=== PATIENT | male | born 1980 | race Caucasian/White ===

== ENCOUNTER 2020-10-04 18:45 | Emergency (ER) | payer MEDICARE, MEDICAID, SELFPAY ==
[2020-10-04 18:49] VITALS: BP 136/98; BP 153/92; PULSE 122; PULSE 127; RESP 20; TEMP 36.6; O2SAT 94; O2SAT 95; BMI 33.0
--- NOTE | 2020-10-04 19:19 | MHC.RECOVSUP ---
? Reason for consult - Support o Current location: ED22H o Identified substance use concern: Alcohol ? Intervention o Community resources provided o Harm reduction discussion ? Plan: o Patient to follow up with [facility] after discharge ? Additional information: Patient had a relapse after 6 months in recovery.. Stating that both his Mother and his Father both have cancer.. Patient wanted recovery resources that was provided to him.. stating that he needs support..
[2020-10-04 19:48] VITALS: BP 153/92; PULSE 122; O2SAT 94
--- NOTE | 2020-10-04 19:48 | ED.ALCOHOL ---
HPI - Alcohol General Chief Complaint: ETOH/Substance Use Stated Complaint: ETOH Time Seen by Provider: 10/04/20 21:59 Source: patient Mode of arrival: ambulatory Limitations: no limitations History of Present Illness HPI narrative: Patient brought to the ED due to him drinking alcohol. Patient was found sitting behind a liquor store drinking alcohol. Patient states him and his girlfriend got into an argument and broke up so he drank 20 beers. Patient denies for the ground hitting head. Patient is not suicidal homicidal. Patient does not want detox. Related Data Allergies Allergy/AdvReac Type Severity Reaction Status Date / Time No Known Allergies Allergy Unverified 01/21/20 15:51 Review of Systems Review of Systems: Yes all other systems are reviewed and are negative Constitutional: Constitutional: Reports as per HPI and Reports no additional constitutional complaints Eyes: Eyes: Reports as per HPI and Reports no additional eye complaints ENT: Reports system reviewed and no additional complaints, except as documented and Reports as per HPI Cardiovascular: Cardiovascular: Reports as per HPI and Reports no additional cardiovascular complaints Respiratory: Respiratory: Reports as per HPI and Reports no additional respiratory complaints Gastrointestinal: Gastrointestinal: Reports as per HPI and Reports no additional gastrointestinal complaints Genitourinary: Genitourinary: Reports no additional male genitourinary complaints and Reports as per HPI Musculoskeletal: Musculoskeletal: Reports no additional musculoskeletal complaints and Reports as per HPI Neurologic: Reports system reviewed and no additional complaints, except as documented and Reports as per HPI Psychiatric: Psychiatric: Reports no additional psychiatric complaints and Reports as per HPI [facility] Social History Social History Alcohol intake: current Alcohol intake frequency: 3 or more drinks per day Alcohol type: beer Patient Tobacco Use Status: Current everyday Tobacco user Smoked in Last 30 Days: Yes Use of substances other than those prescribed or required for medical reasons: Yes Substance Use Type: Marijuana Last Used Substance: Days (ago) Advance Directives: No Advance Directives Information Provided: No Physical Exam Vital Signs: Vital Signs: Last Vital Signs Temp 98 F 10/04/20 18:49 Pulse 96 10/04/20 22:23 Resp 16 10/04/20 22:23 BP 145/74 H 10/04/20 22:23 Pulse Ox 98 10/04/20 22:23 Body Mass Index 33.0 Const: General: cooperative, healthy appearing, comfortable, no acute distress, well developed, alert, awake and Physically active Orientation/consciousness: patient oriented x3 HENMT: Head: Yes normal to inspection, Yes No palpable skull fracture present, Yes normocephalic, Yes atraumatic, No abrasion, No Acrocyanosis present, No Suero's sign, No contusion, No cranial bruits, No hematoma, No laceration, No occipital foramen tenderness, No palpable skull fracture, No raccoon eyes, No scalp lesion, No scalp tenderness, No Temporal artery tenderness present and No periorbital ecchymosis Eyes: General: appearance normal, both eyes and all related structures Neck: Neck: Yes normal visual inspection, Yes full ROM, Yes no lymphadenopathy, Yes no meningeal signs, Yes trachea midline, Yes supple and No tender Chest: Chest palpation & inspection: normal inspection of the chest and normal palpation of entire chest wall Resp: Effort & Inspection: normal respiratory effort and able to speak in complete sentences Auscultation: clear to auscultation bilaterally Cardio: Jugular venous distension: no JVD Heart sounds: S1 normal heart sound present and S2 normal heart sound present GI: Inspection: Yes normal to inspection and No abdominal wall ecchymosis Palpation (GI): Soft to palpation, not firm, nontender, no guarding and not rigid : General: No CVA tenderness and Yes no CVA tenderness Back/Spine/Pelvis: Back: no CVA tenderness, No CVA tenderness and No back tenderness Skin: General skin exam: no rashes or lesions noted and elasticity normal Neuro: General: patient oriented x3, gait normal, no meningeal signs and CN's II-XI intact bilaterally Cranial nerves: Yes CN's II-XII intact bilaterally Extrem: General: Yes normal to inspection and Yes full ROM Psych: Appearance: grossly normal, well kempt and not disheveled Course Course Course Narrative: No signs of trauma. No indication for imaging. Will let patient sober up and then discharge. Reevaluation(s) Reevaluation #1: Patient presently alert oriented x3 with normal gait. Patient ready and safe for discharge. Patient been in the ER for over 2 hours. MDM - Alcohol MDM Narrative Medical decision making narrative: Alcohol abuse Discharge Plan Discharge Clinical Impression: Alcohol abuse Patient Disposition: Home, Self-Care Instructions: Abuse of Alcohol (ED) Additional Instructions: Return to the ED immediately for any headache, dizziness, chest pain, shortness of breath,neck pain, abdominal pain, vomiting blood, rectal bleeding, or any other concerning symptoms. Please follow-up with the PCP Interventions: ED Discharge Assessment Last Done: 10/04/20 22:20 Discharge Date/Time: 10/04/20 22:29 Print Language: Senegalese
[2020-10-04 20:11] VITALS: BP 110/88; PULSE 100; RESP 18; O2SAT 96
--- NOTE | 2020-10-04 20:38 | PC.NURSE ---
Pt states he cannot find a sober ride, has not attempted to call for ride. Pt coming up to nurses station, continuously asking to leave and go to car. Pt easily redirected.
[2020-10-04 22:23] VITALS: BP 145/74; PULSE 96; RESP 16; O2SAT 98
--- NOTE | 2020-10-04 22:24 | PC.NURSE ---
Pt ambulating around ED w/ steady and cortez gait. Tolerting po well. Speaks in clear and full sentences.
== END 2020-10-04 22:29 | disposition home or self-care (01) ==
PROVIDERS: Emergency Provider Emergency Medicine Emergency Medical Services
DX: F10.129 Alcohol abuse with intoxication, unspecified (principal); F12.90 Cannabis use, unspecified, uncomplicated; F17.200 Nicotine dependence, unspecified, uncomplicated; Y90.9 Presence of alcohol in blood, level not specified; Z71.6 Tobacco abuse counseling
CPT/HCPCS: 99285

== ENCOUNTER 2021-03-10 14:42 | Emergency (ER) | payer MEDICARE, MEDICAID, SELFPAY ==
[2021-03-10 14:55] VITALS: BP 137/83; BP 146/100; PULSE 115; PULSE 117; RESP 18; TEMP 36.6; O2SAT 98; BMI 38.5
--- NOTE | 2021-03-10 16:31 | ED.ALCOHOL ---
HPI - Alcohol General Chief Complaint: ETOH/Substance Use Stated Complaint: etoh Time Seen by Provider: 03/10/21 16:24 Source: patient Mode of arrival: ambulatory Limitations: no limitations History of Present Illness HPI narrative: For 3-year-old male presents to ED for alcohol use. Patient was drinking and got into argument with his landlord who is also his roommate while drinking and the landlord called the ambulance. Patient is not suicidal or homicidal. Patient and EMS denies any recent head trauma. Related Data Allergies Allergy/AdvReac Type Severity Reaction Status Date / Time No Known Allergies Allergy Unverified 01/21/20 15:51 Review of Systems Review of Systems: Yes all other systems are reviewed and are negative Constitutional: Constitutional: Reports as per HPI and Reports no additional constitutional complaints Eyes: Eyes: Reports as per HPI and Reports no additional eye complaints ENT: Reports system reviewed and no additional complaints, except as documented and Reports as per HPI Cardiovascular: Cardiovascular: Reports as per HPI and Reports no additional cardiovascular complaints Respiratory: Respiratory: Reports as per HPI and Reports no additional respiratory complaints Gastrointestinal: Gastrointestinal: Reports as per HPI and Reports no additional gastrointestinal complaints Genitourinary: Genitourinary: Reports no additional male genitourinary complaints and Reports as per HPI Musculoskeletal: Musculoskeletal: Reports no additional musculoskeletal complaints and Reports as per HPI Neurologic: Reports system reviewed and no additional complaints, except as documented and Reports as per HPI Comments: Alcohol on breath PMFSH Social History Social History Alcohol intake: current Alcohol intake frequency: 3 or more drinks per day Alcohol type: beer Patient Tobacco Use Status: Current everyday Tobacco user Substance Use Type: Marijuana Advance Directives: No Advance Directives Information Provided: No Physical Exam Vital Signs: Vital Signs: Last Vital Signs Temp 98 F 03/10/21 14:55 Pulse 115 H 03/10/21 14:55 Resp 18 03/10/21 14:55 BP 137/83 03/10/21 14:55 Pulse Ox 98 03/10/21 14:55 Body Mass Index 38.5 Const: General: cooperative, healthy appearing, comfortable, no acute distress, well developed, alert and awake Orientation/consciousness: patient oriented x3 HENMT: Head: Yes normal to inspection, Yes No palpable skull fracture present, Yes normocephalic, Yes atraumatic, No abrasion, No Acrocyanosis present, No Suero's sign, No contusion, No cranial bruits, No hematoma, No laceration, No occipital foramen tenderness, No palpable skull fracture, No raccoon eyes, No scalp lesion, No scalp tenderness, No Temporal artery tenderness present and No periorbital ecchymosis Eyes: General: appearance normal, both eyes and all related structures Neck: Neck: Yes normal visual inspection, Yes full ROM, Yes no lymphadenopathy, Yes no meningeal signs, Yes trachea midline, Yes supple and No tender Chest: Chest palpation & inspection: normal inspection of the chest and normal palpation of entire chest wall Resp: Effort & Inspection: normal respiratory effort and able to speak in complete sentences Auscultation: clear to auscultation bilaterally Cardio: Jugular venous distension: no JVD Heart sounds: S1 normal heart sound present and S2 normal heart sound present GI: Inspection: Yes normal to inspection and No abdominal wall ecchymosis Palpation (GI): Soft to palpation, not firm, nontender, no guarding and not rigid : General: No CVA tenderness and Yes no CVA tenderness Back/Spine/Pelvis: Back: no CVA tenderness, No CVA tenderness and No back tenderness Skin: General skin exam: no rashes or lesions noted and elasticity normal Neuro: General: patient oriented x3, gait normal, no meningeal signs and CN's II-XI intact bilaterally Cranial nerves: Yes CN's II-XII intact bilaterally Extrem: General: Yes normal to inspection and Yes full ROM Psych: Appearance: grossly normal, well kempt and not disheveled Course Course Course Narrative: Patient alert oriented x3 with normal gait. Will watch for at least 2 hours in the ER. Reevaluation(s) Reevaluation #1: Patient discharged by Dr. Mayorga from the ER. Patient was alert oriented x3 with normal gait. Patient refused detox. Discharge Plan Discharge Clinical Impression: Alcoholic intoxication Qualifiers: Complication of substance-induced condition: uncomplicated Qualified Code(s): F10.920 - Alcohol use, unspecified with intoxication, uncomplicated Patient Disposition: Home, Self-Care Instructions: Alcohol Intoxication (ED) Additional Instructions: follow up with detox Discharge Date/Time: 03/10/21 16:52
== END 2021-03-10 16:52 | disposition home or self-care (01) ==
PROVIDERS: Emergency Provider Internal Medicine
DX: F10.920 Alcohol use, unspecified with intoxication, uncomplicated (principal); Y90.9 Presence of alcohol in blood, level not specified; F17.200 Nicotine dependence, unspecified, uncomplicated
CPT/HCPCS: 99281; 99282

== ENCOUNTER 2021-06-14 16:46 | Emergency (ER) | payer OTHER, MEDICAID, SELFPAY ==
--- NOTE | ~2021-06-14 | XR_ITS ---
EXAMINATION: XR RIBS, LEFT CLINICAL INFORMATION: Rib pain COMPARISON: None TECHNIQUE: Single view chest and 3 views of the left ribs were obtained. FINDINGS: Lungs are clear. No consolidation, pneumothorax, or pleural effusion. The cardiomediastinal silhouette and pulmonary vasculature are normal. Osseous structures are unremarkable. Ribs are intact. No fractures are identified. XR/XR ribs LT min 3V w CXR1V IMPRESSION: Unremarkable examination.
--- NOTE | 2021-06-14 16:51 | ED_ITS ---
HPI - Alcohol General Chief Complaint: ETOH/Substance Use Stated Complaint: ETOH Time Seen by Provider: 06/14/21 16:51 Source: patient and EMS Mode of arrival: ambulatory Limitations: no limitations History of Present Illness HPI narrative: 40-year-old male with alcohol use disorder presenting via ambulance with acute alcohol intoxication, was found at a local package store. Patient tells me hes here because he is stressed, and going though a lot. He tells me he is depressed because his step dad is dying. Unable to quantify how much he drank alot . Denies hisotry of alcohol withdraw. Denies SI and HI. Denies visual, tactile and auditory hallucinations. Denies chest pain, shortness of breath, fevers, chills, nausea, vomiting, abdominal pain. Patient evidently intoxicated, however, answering questions appropriately. MD complaint: alcohol intoxication Last drink: Just prior to admission Amount of alcohol consumed: Unknown. Chronic alcohol use: Yes Previous visits for alcohol intoxication: Yes Recent trauma: No Associated symptoms: denies other symptoms Treatments prior to arrival: none Related Data Allergies Allergy/AdvReac Type Severity Reaction Status Date / Time No Known Allergies Allergy Unverified 01/21/20 15:51 Review of Systems Review of Systems: Constitutional : No Fever, No Chills ENT/Mouth : No sore throat, No Rhinorrhea Eyes: No Eye Pain, No Swelling, No Redness Cardiovascular : No Chest Pain, No SOB Respiratory : No Cough, No Sputum Gastrointestinal : No Nausea, No Vomiting, No Diarrhea, No abdominal Pain Genitourinary : No Dysuria, No Hematuria Musculoskeletal : No joint pain, No Myalgias, No Joint Swelling Skin : No Skin Lesions, No rash Neuro : No Weakness, No Numbness Psych : + Anxiety, + Depression, No SI/HI/AH/VH All other systems reviewed and are negative Yes all other systems are reviewed and are negative [facility] Past Medical History Attestation statement: The following information was validated with the patient. Source: old records reviewed and nursing notes reviewed Social History Social History Alcohol intake: current Alcohol intake frequency: 3 or more drinks per day Alcohol type: beer Patient Tobacco Use Status: Current everyday Tobacco user Substance Use Type: Marijuana Advance Directives: No Advance Directives Information Provided: No Physical Exam Vital Signs: Vital Signs: Last Vital Signs Temp 97.2 F 06/14/21 19:49 Pulse 103 H 06/14/21 19:49 Resp 16 06/14/21 19:49 BP 130/90 H 06/14/21 19:49 Pulse Ox 99 06/14/21 19:49 BMI result Body Mass Index 28.7 VSS Appearance: Alert.? Oriented X3.? No acute distress.?Evidently intoxicated Head: Normocephalic, atraumatic, no step-offs or deformities Eyes: Pupils equal, round and reactive to light.? ENT: Pharynx normal.? Neck: Normal inspection.? Neck supple.? CVS: Normal heart rate and rhythm.? Pulses normal.? Respiratory: No respiratory distress.? Breath sounds normal.? Abdomen: Soft and nontender.? Skin: Skin warm and dry.? Normal skin color.? Normal skin turgor.? Extremities: No lower extremity edema.? No calf ttp. 5/5 strength to bilateral upper and lower extremities Back: No midline tenderness, no C-spine tenderness, full range of motion, no CVA tenderness bilaterally Neuro: Oriented X 3.? No motor deficit.? No sensory deficit. CN 2-12 intact. U nsteady gait with ambulation Course Reevaluation(s) Reevaluation #1: Patient now reporting l. sided rib pain tells me he fell on ice a few days ago. Toradol will be given and a rib xray will be done. Time: 22:48 Reevaluation #2: CBC within normal limits. Chemistry within normal limits, slightly elevated AST. Urine clean. Patient's urine tox positive for cocaine, ethanol 346. At this time patient continues to say he is depressed and anxious, he will be evaluated by N. Patient ambulating with a steady gait. At this time patient will be placed in physician observation to allow more time for patient to be evaluated by the behavioral health team. At time evaluation was started patient's vital signs were stable, patient calm cooperative. Physical examination benign. Will continue to monitor. Time: 22:51 MDM - Alcohol MDM Narrative Medical decision making narrative: 1700 40 yo m pmhx alcohol abuse BIBA for acute alcohol intoxication. Found at a liquor store. Unknown how much he drank. Endorses anxiety and depression. No SI or HI. PE significant for intoxicated male, A&O X3, unsteady gait. RRR, lungs clear, abodmen soft nontender non distended. History and physical examination not consistent with acute alcohol withdrawal. No V/A/T hallucinations. No faciculations. Plan- labs, JAMES, ethanol, UA, fluids and ativan. No signs of trauma no need for imaging. Medical Records Attestation: I reviewed the patient's medical records. Lab Data Attestation: I reviewed the patient's lab results. Result diagrams: 06/14/21 18:48 06/14/21 18:48 Labs: Lab Results 06/14/21 06/14/21 06/14/21 Range/Units 18:36 18:48 18:48 WBC 10.2 (4.8-10.8) X10*3/uL RBC 5.17 (4.60-5.80) X10*6/uL Hgb 15.2 (14.0-18.0) g/dl Hct 43.9 (42.0-52.0) % MCV 84.9 (80.0-98.0) fL MCH 29.4 (27.0-33.0) pg MCHC 34.6 (31.0-36.0) g/dl RDW 13.1 (11.0-16.0) % Plt Count 295 (160-400) X10*3/uL MPV 9.9 (9.4-12.4) fL Immature Gran % (Auto) 0.3 (0.0-0.4) % Neut % (Auto) 65.5 (45-73) % Lymph % (Auto) 27.5 (20-40) % [place] % (Auto) 5.9 (2-11) % Eos % (Auto) 0.4 (0-4) % Baso % (Auto) 0.4 (0-2) % Lymph # (Auto) 2.8 (1.2-4.9) X10*3/uL [place] # (Auto) 0.6 (0.1-1.2) X10*3/uL Eos # (Auto) 0.0 (0.0-0.4) X10*3/uL Baso # (Auto) 0.0 (0.0-0.2) X10*3/uL Abs Immat Gran (auto) 0.03 (0.00-0.03) X10*3/uL Absolute Neuts (auto) 6.7 (2.0-8.3) x10*3/uL Absolute Nucleated RBC 0.000 (0.0-0.012) X10*3/uL Nucleated RBC % (auto) 0.0 (0.0-0.2) /100WBC Sodium 141 (135-145) mmol/L Potassium 3.9 (3.3-5.1) mmol/L Chloride 106 (96-108) mmol/L Carbon Dioxide 22 (22-29) mmol/L Anion Gap 17 (12-20) BUN 9 (9-16) mg/dL Creatinine 1.20 (0.5-1.4) mg/dL Estim Creat Clear Calc 91.7 Estimated GFR > 60 POC Glucose 134 H (60-115) mg/dL Random Glucose 120 H (60-115) mg/dL Calcium 9.2 (8.4-10.2) mg/dL Magnesium 2.3 (1.6-2.6) mg/dL Total Bilirubin 0.6 (0.0-1.0) mg/dL AST 47 H (5-37) U/L ALT 17 (0-40) U/L Alkaline Phosphatase 97 (39-117) U/L Total Protein 7.9 (6.5-8.0) g/dL Albumin 4.6 (3.5-5.0) g/dL Urine Color Urine Appearance Urine pH (5.0-8.0) Ur Specific [place] (1.005-1.025) Urine Protein (NEG-TRACE) MG/DL Urine Glucose (UA) (NEG) MG/DL Urine Ketones (NEG) MG/DL Urine Blood (NEG) Urine Nitrite (NEG) Ur Leukocyte Esterase (NEG) Urine RBC (0) /HPF Urine WBC (0-4) /HPF Ur Squamous Epith Cells /LPF Amorphous Sediment /LPF Urine Bacteria /LPF Urine Mucus /LPF Urine Opiates Screen (Not Detect) Urine Fentanyl Screen (Not Detect) Ur Barbiturates Screen (Not Detect) Ur Phencyclidine Scrn (Not Detect) Ur Amphetamines Screen (Not Detect) U Benzodiazepines Scrn (Not Detect) Urine Cocaine Screen (Not Detect) U Marijuana (THC) Screen (Not Detect) Ethyl Alcohol mg/dL COVID-19 (LATRICE) (Negative) COVID-19 Clin Com 06/14/21 06/14/21 06/14/21 Range/Units 18:48 18:48 18:49 WBC (4.8-10.8) X10*3/uL RBC (4.60-5.80) X10*6/uL Hgb (14.0-18.0) g/dl Hct (42.0-52.0) % MCV (80.0-98.0) fL MCH (27.0-33.0) pg MCHC (31.0-36.0) g/dl RDW (11.0-16.0) % Plt Count (160-400) X10*3/uL MPV (9.4-12.4) fL Immature Gran % (Auto) (0.0-0.4) % Neut % (Auto) (45-73) % Lymph % (Auto) (20-40) % [place] % (Auto) (2-11) % Eos % (Auto) (0-4) % Baso % (Auto) (0-2) % Lymph # (Auto) (1.2-4.9) X10*3/uL [place] # (Auto) (0.1-1.2) X10*3/uL Eos # (Auto) (0.0-0.4) X10*3/uL Baso # (Auto) (0.0-0.2) X10*3/uL Abs Immat Gran (auto) (0.00-0.03) X10*3/uL Absolute Neuts (auto) (2.0-8.3) x10*3/uL Absolute Nucleated RBC (0.0-0.012) X10*3/uL Nucleated RBC % (auto) (0.0-0.2) /100WBC Sodium (135-145) mmol/L Potassium (3.3-5.1) mmol/L Chloride (96-108) mmol/L Carbon Dioxide (22-29) mmol/L Anion Gap (12-20) BUN (9-16) mg/dL Creatinine (0.5-1.4) mg/dL Estim Creat Clear Calc Estimated GFR POC Glucose (60-115) mg/dL Random Glucose (60-115) mg/dL Calcium (8.4-10.2) mg/dL Magnesium (1.6-2.6) mg/dL Total Bilirubin (0.0-1.0) mg/dL AST (5-37) U/L ALT (0-40) U/L Alkaline Phosphatase (39-117) U/L Total Protein (6.5-8.0) g/dL Albumin (3.5-5.0) g/dL Urine Color STRAW Urine Appearance CLEAR Urine pH 5.5 (5.0-8.0) Ur Specific [place] <= 1.005 (1.005-1.025) Urine Protein NEG (NEG-TRACE) MG/DL Urine Glucose (UA) NEG (NEG) MG/DL Urine Ketones NEG (NEG) MG/DL Urine Blood TRACE (NEG) Urine Nitrite NEG (NEG) Ur Leukocyte Esterase NEG (NEG) Urine RBC 0-2 (0) /HPF Urine WBC 0 (0-4) /HPF Ur Squamous Epith Cells TRACE /LPF Amorphous Sediment TRACE /LPF Urine Bacteria NONE /LPF Urine Mucus TRACE /LPF Urine Opiates Screen (Not Detect) Urine Fentanyl Screen (Not Detect) Ur Barbiturates Screen (Not Detect) Ur Phencyclidine Scrn (Not Detect) Ur Amphetamines Screen (Not Detect) U Benzodiazepines Scrn (Not Detect) Urine Cocaine Screen (Not Detect) U Marijuana (THC) Screen (Not Detect) Ethyl Alcohol 346 H* mg/dL COVID-19 (LATRICE) Positive A (Negative) COVID-19 Clin Com See Note 06/14/21 Range/Units 18:49 WBC (4.8-10.8) X10*3/uL RBC (4.60-5.80) X10*6/uL Hgb (14.0-18.0) g/dl Hct (42.0-52.0) % MCV (80.0-98.0) fL MCH (27.0-33.0) pg MCHC (31.0-36.0) g/dl RDW (11.0-16.0) % Plt Count (160-400) X10*3/uL MPV (9.4-12.4) fL Immature Gran % (Auto) (0.0-0.4) % Neut % (Auto) (45-73) % Lymph % (Auto) (20-40) % [place] % (Auto) (2-11) % Eos % (Auto) (0-4) % Baso % (Auto) (0-2) % Lymph # (Auto) (1.2-4.9) X10*3/uL [place] # (Auto) (0.1-1.2) X10*3/uL Eos # (Auto) (0.0-0.4) X10*3/uL Baso # (Auto) (0.0-0.2) X10*3/uL Abs Immat Gran (auto) (0.00-0.03) X10*3/uL Absolute Neuts (auto) (2.0-8.3) x10*3/uL Absolute Nucleated RBC (0.0-0.012) X10*3/uL Nucleated RBC % (auto) (0.0-0.2) /100WBC Sodium (135-145) mmol/L Potassium (3.3-5.1) mmol/L Chloride (96-108) mmol/L Carbon Dioxide (22-29) mmol/L Anion Gap (12-20) BUN (9-16) mg/dL Creatinine (0.5-1.4) mg/dL Estim Creat Clear Calc Estimated GFR POC Glucose (60-115) mg/dL Random Glucose (60-115) mg/dL Calcium (8.4-10.2) mg/dL Magnesium (1.6-2.6) mg/dL Total Bilirubin (0.0-1.0) mg/dL AST (5-37) U/L ALT (0-40) U/L Alkaline Phosphatase (39-117) U/L Total Protein (6.5-8.0) g/dL Albumin (3.5-5.0) g/dL Urine Color Urine Appearance Urine pH (5.0-8.0) Ur Specific [place] (1.005-1.025) Urine Protein (NEG-TRACE) MG/DL Urine Glucose (UA) (NEG) MG/DL Urine Ketones (NEG) MG/DL Urine Blood (NEG) Urine Nitrite (NEG) Ur Leukocyte Esterase (NEG) Urine RBC (0) /HPF Urine WBC (0-4) /HPF Ur Squamous Epith Cells /LPF Amorphous Sediment /LPF Urine Bacteria /LPF Urine Mucus /LPF Urine Opiates Screen Not Detected (Not Detect) Urine Fentanyl Screen Not Detected (Not Detect) Ur Barbiturates Screen Not Detected (Not Detect) Ur Phencyclidine Scrn Not Detected (Not Detect) Ur Amphetamines Screen Not Detected (Not Detect) U Benzodiazepines Scrn Not Detected (Not Detect) Urine Cocaine Screen POSITIVE H (Not Detect) U Marijuana (THC) Screen Not Detected (Not Detect) Ethyl Alcohol mg/dL COVID-19 (LATRICE) (Negative) COVID-19 Clin Com Imaging Data Rib xray : Attestation: I personally reviewed and interpreted this imaging study as follows: Radiologist's impression: FINDINGS: Lungs are clear. No consolidation, pneumothorax, or pleural effusion. The cardiomediastinal silhouette and pulmonary vasculature are normal. Osseous structures are unremarkable. Ribs are intact. No fractures are identified. XR/XR ribs LT min 3V w CXR1V IMPRESSION: Unremarkable examination. Critical Care Time Critical Care Time Critical Care Time: No Discharge Plan Discharge Clinical Impression: Alcoholic intoxication, Depression, Anxiety Patient Disposition: Still a Patient Instructions: Depression (ED), Alcohol Intoxication (ED), Abuse of Alcohol (DC), Anxiety (ED), Alcohol Use Disorder (ED) Additional Instructions: Take your medications as prescribed. If you were prescribed antibiotics today, it is important that you take your medication to their entirety, do not skip any doses, do not finish them early. Today you tested positive for COVID-19. Take Ibuprofen or Tylenol as needed for fevers or body aches. Quarantine for 5 days and ensure you wear a mask. After 5 days you should wear a mask for 5 days after that. Practice social distancing and good hand hygiene. Drink plenty of fluids. Follow-up with your primary care provider this week. Return to the emergency department with new or worsening symptoms. In case of emergency call 911 You can purchase a pulse oximeter from your local pharmacy or grocery store, and monitor your oxygen saturation if it goes below 94% you should return to the emergency department for further evaluation. Referrals: Physician,Maria Luisa J [Primary Care Provider] - 2 days
[2021-06-14 16:55] VITALS: BP 152/86; PULSE 104; RESP 16; O2SAT 98; BMI 28.7
[2021-06-14 18:39] VITALS: BP 125/88; PULSE 107; RESP 16; TEMP 36.3; O2SAT 97
[2021-06-14 18:47] LABS: Glucose, Whole Blood 134 mg/dL (60-115)
[2021-06-14 18:54] LABS: MANUAL DIFF FLAG NO
[2021-06-14 18:58] LABS: Basophils Percent Auto 0.4 % (0-2); Eosinophils Percent Auto 0.4 % (0-4); Hematocrit 43.9 % (42.0-52.0); Hemoglobin 15.2 g/dl (14.0-18.0); Imm Gran Abs Auto 0.03 X10*3/uL (0.00-0.03); Imm Gran Pct Auto 0.3 % (0.0-0.4); Lymphocytes Absolute Auto 2.8 X10*3/uL (1.2-4.9); Lymphocytes Percent Auto 27.5 % (20-40); Mean Corpuscular HGB Conc 34.6 g/dl (31.0-36.0); Mean Corpuscular Hemoglobin 29.4 pg (27.0-33.0); Mean Corpuscular Volume 84.9 fL (80.0-98.0); Mean Platelet Volume 9.9 fL (9.4-12.4); Monocytes Absolute Auto 0.6 X10*3/uL (0.1-1.2); Monocytes Percent Auto 5.9 % (2-11); Neutrophils Absolute Auto 6.7 x10*3/uL (2.0-8.3); Neutrophils Percent Auto 65.5 % (45-73); Platelet Count 295 X10*3/uL (160-400); Red Blood Count 5.17 X10*6/uL (4.60-5.80); Red Cell Distribution Width 13.1 % (11.0-16.0); White Blood Count 10.2 X10*3/uL (4.8-10.8)
[2021-06-14 19:01] LABS: Appearance Urine CLEAR; Color Urine STRAW; Glucose Urine UA NEG (NEG); Leukocyte Esterase Urine NEG (NEG); Nitrite Urine NEG (NEG); PH 5.5 (5.0-8.0); Specific Gravity - Urine <= 1.005 (1.005-1.025); UACC Culture Trigger NO; Urine Blood TRACE (NEG); Urine Ketones NEG (NEG); Urine Protein NEG (NEG-TRACE)
[2021-06-14 19:07] LABS: COVID-19 Test Positive (Negative)
[2021-06-14 19:14] LABS: Amorphous Sediment Urine TRACE /LPF; Mucus Urine TRACE /LPF; RBC Urine 0-2 /HPF (0); Squamous Epithelial Cell Urine TRACE /LPF; WBC Urine 0 /HPF (0-4)
[2021-06-14 19:21] LABS: Ethanol 346 mg/dL
[2021-06-14 19:25] LABS: Alanine Aminotransferase 17 U/L (0-40); Albumin Level 4.6 g/dL (3.5-5.0); Alkaline Phosphatase 97 U/L (39-117); Anion Gap 17 (12-20); Aspartate Amino Transferase 47 U/L (5-37); Bilirubin Total 0.6 mg/dL (0.0-1.0); Calcium 9.2 mg/dL (8.4-10.2); Carbon Dioxide 22 mmol/L (22-29); Chloride 106 mmol/L (96-108); Creatinine Clr Calc Pharmacy 91.7; Estimated Glomerular Filt Rate > 60; Glucose Random 120 mg/dL (60-115); Magnesium 2.3 mg/dL (1.6-2.6); Potassium 3.9 mmol/L (3.3-5.1); Sodium 141 mmol/L (135-145); Total Protein 7.9 g/dL (6.5-8.0)
[2021-06-14 19:26] LABS: Amphetamine Screen Urine Not Detected (Not Detect); Barbiturates, Urine Not Detected (Not Detect); Benzodiazepines Screen Urine Not Detected (Not Detect); Cannabinoid Screen Urine Not Detected (Not Detect); Cocaine Screen Urine POSITIVE (Not Detect); Fentanyl, urine Not Detected (Not Detect); Opiate Screen Urine Not Detected (Not Detect); Phencyclidine Screen Urine Not Detected (Not Detect)
--- NOTE | 2021-06-14 19:26 | MHC.RECOVSUP ---
? Reason for consult: Recovery Support o ? ? ?Current location: ?ED17 o ? ? ?Identified substance use concern: ?Alcohol - Overdose - Support ? ?Intervention: o Community resources provided o Harm reduction discussion ? Additional information:?I was able to connect with Pt. and review harm reduction strategies and further treatment. Pt. 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 We will follow up later in the week.
[2021-06-14 19:33] LABS: Blood Urea Nitrogen 9 mg/dL (9-16)
[2021-06-14] MEDS: Acetaminophen 325 MG TABLET 650 MG PO (19:43)
[2021-06-14] MEDS: Omeprazole 20 MG CAPSULE.DR PO (19:43)
[2021-06-14 19:49] VITALS: BP 130/90; PULSE 103; RESP 16; TEMP 36.2; O2SAT 99
[2021-06-14] MEDS: LORazepam 0.5 MG TABLET PO (21:13)
[2021-06-14 22:00] VITALS: BP 134/72; PULSE 96; RESP 15; TEMP 36.3; O2SAT 97
[2021-06-15 00:22] VITALS: RESP 12
[2021-06-15 02:10] VITALS: BP 130/84; PULSE 98; RESP 14; TEMP 36.7; O2SAT 95
[2021-06-15 04:46] VITALS: RESP 16
--- NOTE | 2021-06-15 05:59 | PC.NURSE ---
[facility] crisis referral completed.
[2021-06-15 06:07] VITALS: RESP 14
[2021-06-15 07:59] VITALS: BP 100/52; PULSE 68; RESP 14; O2SAT 97
--- NOTE | 2021-06-15 08:03 | PC.NURSE ---
report taken from molina jerry pt appears to be sleeping on first contact, no apparent distress, rr even/unlabored. pt allowed to sleep at this time, notes sts smart sheet referral sent, [facility] confirming via phone that smart sheet has been accepted. [facility]ctm for dc needs.
[2021-06-15] MEDS: Ketorolac Tromethamine 30 MG/ML VIAL IM (09:46)
--- NOTE | 2021-06-15 10:07 | MHC.CARE ---
Pt is a 40 year old male who presented to [facility] ED via EMS from a package store intoxicated with a BAL of 356 on 06/14. Pt now presents as alert, orientated and engaged. Pt reports his father was recently diagnosed with cancer and relapsed after 30 days of sobriety due to the news regarding his father. Pt stated his step-mom has been updating him as his father is in the hospital is overall not doing well. Pt reports he current has sponsor through AA. Pt reports he did not report SI/HI which is reflective in charged but expressed frustration that he was held till today. Pt denies current HI/SI/VH/AH. Pt reports remote history of IPLOC 15 plus years ago for anxiety and depression. Pt denies interest in therapy or psychiatric services. Pt provided with [facility] Crisis information and CARE Team will follow up with Pt in 1-2 days for a check in call.
--- NOTE | 2021-06-16 20:51 | MHC.CARE ---
CARE Team called pt to follow up and an automated voice message stated the person you are calling cannot accept calls at this time with no option to leave a message. CARE Team attempted to call pt again with same result.
== END 2021-06-15 09:58 | disposition home or self-care (01) ==
PROVIDERS: Physician Assistant; Emergency Provider Internal Medicine
DX: U07.1 COVID-19 (principal); F10.120 Alcohol abuse with intoxication, uncomplicated; Y90.8 Blood alcohol level of 240 mg/100 ml or more; F32.A Depression, unspecified; F41.9 Anxiety disorder, unspecified; R07.81 Pleurodynia; F14.90 Cocaine use, unspecified, uncomplicated; F12.90 Cannabis use, unspecified, uncomplicated; F17.200 Nicotine dependence, unspecified, uncomplicated
CPT/HCPCS: 71101; 80053; 80307; 81001; 81003; 82077; 82947; 83735; 85025; 87635; 96360; 96372; 99285; J1885

== ENCOUNTER 2022-01-10 18:47 | Emergency (ER) | payer MEDICARE, MEDICAID, SELFPAY ==
--- NOTE | 2022-01-10 19:00 | ED.ALCOHOL ---
HPI - Alcohol General Chief Complaint: ETOH/Substance Use Stated Complaint: ETOH Time Seen by Provider: 01/10/22 18:58 Source: patient, EMS and police Mode of arrival: ambulatory Limitations: no limitations History of Present Illness HPI narrative: 41-year-old male presents to the emergency department with acute alcohol intoxication presenting with EMS and police. According to patient he was drinking all day long with his, his aunt called 911 he is unsure as to why, police arrived and advised him to come into the emergency department for further evaluation treatment. Patient tells me he feels fine and would like to go home, he reports drinking 12 beers throughout the day, last drink was just prior to arrival, patient is ambulating with steady gait with normal coordination, alert and oriented x4, appears comfortable and in no acute distress. Denies falls or trauma. Denies medical complaints at this time. Denies SI, HI. complaint: alcohol intoxication Related Data Allergies Allergy/AdvReac Type Severity Reaction Status Date / Time No Known Allergies Allergy Unverified 01/21/20 15:51 Review of Systems Review of Systems: Constitutional : No Weight loss, No Fever, No Chills, No Fatigue, No Malaise ENT/Mouth : No sore throat, No Rhinorrhea Eyes: No Eye Pain, No Swelling, No Redness Cardiovascular : No Chest Pain, No SOB, No Dyspnea on Exertion, No Orthopnea, No Edema, No Palpitations Respiratory : No Cough, No Sputum, No Wheezing Gastrointestinal : No Nausea, No Vomiting, No Diarrhea, No Constipation, No abdominal Pain, No Hematochezia, No Melena Genitourinary : No Dysuria, No Urinary Frequency, No Hematuria, Musculoskeletal : No joint pain, No Myalgias, No Joint Swelling Skin : No Skin Lesions, No rash Neuro : No Weakness, No Numbness, No Dizziness, No Headache Psych : No Anxiety/Panic, No Depression All other systems reviewed and are negative Yes all other systems are reviewed and are negative PMFSH Past Medical History Attestation statement: The following information was validated with the patient. Source: old records reviewed and nursing notes reviewed Social History Social History Alcohol intake: current Alcohol intake frequency: 3 or more drinks per day Alcohol type: beer Patient Tobacco Use Status: Current everyday Tobacco user Substance Use Type: Marijuana Advance Directives: No Physical Exam ED Vital Signs: Vital Signs - 24 hr 01/10/22 19:46 01/10/22 20:04 Temperature 98.2 F 98.4 F Pulse Rate 118 H 111 H Respiratory Rate 18 18 Blood Pressure 154/96 H 136/94 H Pulse Oximetry 96 97 Oxygen Delivery Method Room Air Room Air BMI result Body Mass Index 35.5 vss Appearance: Alert.? Oriented X3.? No acute distress.? Patient smells like alcohol. No evidence of trauma on exam. Head: Normocephalic, atraumatic, no step-offs or deformities Eyes: Pupils equal, round and reactive to light.? Neck: Normal inspection.? Neck supple.? CVS: Normal heart rate and rhythm.? Pulses normal.? Respiratory: No respiratory distress.? Breath sounds normal.? Abdomen: Soft and nontender.? Skin: Skin warm and dry.? Normal skin color.? Normal skin turgor.? Extremities: No lower extremity edema.? No calf ttp. 5/5 strength to bilateral upper and lower extremities Back: No midline tenderness, no C-spine tenderness, full range of motion, no CVA tenderness bilaterally Neuro: Oriented X 3.? No motor deficit.? No sensory deficit. CN 2-12 intact . Patient ambulating with steady gait, normal coordination. Course Reevaluation(s) Reevaluation #1: CBC appears to be within normal limits, chemistry with no acute electrolyte abnormalities, transaminases slightly elevated likely secondary to chronic alcohol abuse. Patient's ethanol level critically elevated at 423. COVID negative. Urine pending and urine toxicology pending. Time: 20:24 Reevaluation #2: Urine clean. Urine toxicology negative. Patient unable to find a sober ride home at this time. At this time patient will be placed in physician observation to allow more time for patient to find sober ride home. At time observation was started patient common cooperative no acute distress will continue to monitor. Time: 21:01 MDM - Alcohol [facility] Narrative Medical decision making narrative: 1900 41-year-old male history of alcohol use disorder presents to the emergency department with acute alcohol intoxication, brought in by EMS and police. Offers no complaints. Ambulating with steady gait, no signs of trauma alert and oriented x4. Denies SI, HI. Physical examination patient smells like alcohol, rest of examination is benign. Ambulating with steady gait normal coordination, normal neuro exam. Patient a and O x4. GCS of 15. Plan at this time is to obtain basic labs, medical clearance. In for patient to find sober ride home. Medical Records Attestation: I reviewed the patient's medical records. Lab Data Attestation: I reviewed the patient's lab results. Result diagrams: 01/10/22 19:29 01/10/22 19:29 Labs: Lab Results 01/10/22 01/10/22 01/10/22 Range/Units 19:29 19:29 19:29 WBC 7.3 (4.8-10.8) X10*3/uL RBC 5.17 (4.60-5.80) X10*6/uL Hgb 15.6 (14.0-18.0) g/dl Hct 43.4 (42.0-52.0) % MCV 83.9 (80.0-98.0) fL MCH 30.2 (27.0-33.0) pg MCHC 35.9 (31.0-36.0) g/dl RDW 13.4 (11.0-16.0) % Plt Count 307 (160-400) X10*3/uL MPV 9.5 (9.4-12.4) fL Immature Gran % (Auto) 0.1 (0.0-0.4) % Neut % (Auto) 55.7 (45-73) % Lymph % (Auto) 35.7 (20-40) % [place] % (Auto) 6.8 (2-11) % Eos % (Auto) 0.7 (0-4) % Baso % (Auto) 1.0 (0-2) % Lymph # (Auto) 2.6 (1.2-4.9) X10*3/uL [place] # (Auto) 0.5 (0.1-1.2) X10*3/uL Eos # (Auto) 0.1 (0.0-0.4) X10*3/uL Baso # (Auto) 0.1 (0.0-0.2) X10*3/uL Abs Immat Gran (auto) 0.01 (0.00-0.03) X10*3/uL Absolute Neuts (auto) 4.1 (2.0-8.3) x10*3/uL Absolute Nucleated RBC 0.000 (0.0-0.012) X10*3/uL Nucleated RBC % (auto) 0.0 (0.0-0.2) /100WBC Sodium 141 (135-145) mmol/L Potassium 3.9 (3.3-5.1) mmol/L Chloride 105 (96-108) mmol/L Carbon Dioxide 23 (22-29) mmol/L Anion Gap 17 (12-20) BUN 17 H D (9-16) mg/dL Creatinine 1.18 (0.5-1.4) mg/dL Estim Creat Clear Calc TNP Estimated GFR > 60 Random Glucose 117 H (60-115) mg/dL Calcium 8.5 D (8.4-10.2) mg/dL Magnesium 2.1 (1.6-2.6) mg/dL Total Bilirubin 0.5 (0.0-1.0) mg/dL AST 85 H (5-37) U/L ALT 73 H (0-40) U/L Alkaline Phosphatase 83 (39-117) U/L Total Protein 7.9 (6.5-8.0) g/dL Albumin 4.5 (3.5-5.0) g/dL Urine Color Urine Appearance Urine pH (5.0-9.0) Ur Specific [place] (1.005-1.025) Urine Protein (Neg-Trace) mg/dL Urine Glucose (UA) (Negative) mg/dL Urine Ketones (Negative) mg/dL Urine Blood (Negative) Urine Nitrite (Negative) Ur Leukocyte Esterase (Negative) Urine Opiates Screen (Not Detect) Urine Fentanyl Screen (Not Detect) Ur Barbiturates Screen (Not Detect) Ur Phencyclidine Scrn (Not Detect) Ur Amphetamines Screen (Not Detect) U Benzodiazepines Scrn (Not Detect) Urine Cocaine Screen (Not Detect) U Marijuana (THC) Screen (Not Detect) Ethyl Alcohol 423 H* mg/dL COVID-19 (LATRICE) Negative (Negative) COVID-19 Clin Com See Note 01/10/22 01/10/22 Range/Units 20:32 20:32 WBC (4.8-10.8) X10*3/uL RBC (4.60-5.80) X10*6/uL Hgb (14.0-18.0) g/dl Hct (42.0-52.0) % MCV (80.0-98.0) fL MCH (27.0-33.0) pg MCHC (31.0-36.0) g/dl RDW (11.0-16.0) % Plt Count (160-400) X10*3/uL MPV (9.4-12.4) fL Immature Gran % (Auto) (0.0-0.4) % Neut % (Auto) (45-73) % Lymph % (Auto) (20-40) % [place] % (Auto) (2-11) % Eos % (Auto) (0-4) % Baso % (Auto) (0-2) % Lymph # (Auto) (1.2-4.9) X10*3/uL [place] # (Auto) (0.1-1.2) X10*3/uL Eos # (Auto) (0.0-0.4) X10*3/uL Baso # (Auto) (0.0-0.2) X10*3/uL Abs Immat Gran (auto) (0.00-0.03) X10*3/uL Absolute Neuts (auto) (2.0-8.3) x10*3/uL Absolute Nucleated RBC (0.0-0.012) X10*3/uL Nucleated RBC % (auto) (0.0-0.2) /100WBC Sodium (135-145) mmol/L Potassium (3.3-5.1) mmol/L Chloride (96-108) mmol/L Carbon Dioxide (22-29) mmol/L Anion Gap (12-20) BUN (9-16) mg/dL Creatinine (0.5-1.4) mg/dL Estim Creat Clear Calc Estimated GFR Random Glucose (60-115) mg/dL Calcium (8.4-10.2) mg/dL Magnesium (1.6-2.6) mg/dL Total Bilirubin (0.0-1.0) mg/dL AST (5-37) U/L ALT (0-40) U/L Alkaline Phosphatase (39-117) U/L Total Protein (6.5-8.0) g/dL Albumin (3.5-5.0) g/dL Urine Color Yellow Urine Appearance Clear Urine pH 5.5 (5.0-9.0) Ur Specific [place] 1.015 (1.005-1.025) Urine Protein Trace (Neg-Trace) mg/dL Urine Glucose (UA) Negative (Negative) mg/dL Urine Ketones Negative (Negative) mg/dL Urine Blood Negative (Negative) Urine Nitrite Negative (Negative) Ur Leukocyte Esterase Negative (Negative) Urine Opiates Screen Not Detected (Not Detect) Urine Fentanyl Screen Not Detected (Not Detect) Ur Barbiturates Screen Not Detected (Not Detect) Ur Phencyclidine Scrn Not Detected (Not Detect) Ur Amphetamines Screen Not Detected (Not Detect) U Benzodiazepines Scrn Not Detected (Not Detect) Urine Cocaine Screen Not Detected (Not Detect) U Marijuana (THC) Screen Not Detected (Not Detect) Ethyl Alcohol mg/dL COVID-19 (LATRICE) (Negative) COVID-19 Clin Com Critical Care Time Critical Care Time Critical Care Time: No Discharge Plan Discharge Clinical Impression: Alcohol intoxication Patient Disposition: Home, Self-Care Instructions: Alcohol Intoxication (ED), Abuse of Alcohol (ED), At-Risk Alcohol Use (ED), Alcohol Withdrawal (ED), Alcohol Use Disorder (ED) Additional Instructions: Take your medications as prescribed. If you were prescribed antibiotics today, it is important that you take your medication to their entirety, do not skip any doses, do not finish them early. Follow-up with your primary care provider this week. Return to the emergency department with new or worsening symptoms. Such as fevers, chills, chest pain, shortness of breath, nausea, vomiting, dizziness, headache, vision changes, lethargy In case of emergency call 911 Referrals: ED Physician,Generic [Physician] - 2 days Stand Alone Forms: Work/School Release
[2022-01-10 19:36] LABS: MANUAL DIFF FLAG NO
[2022-01-10 19:40] LABS: Basophils Absolute Auto 0.1 X10*3/uL (0.0-0.2); Eosinophils Absolute Auto 0.1 X10*3/uL (0.0-0.4); Eosinophils Percent Auto 0.7 % (0-4); Hematocrit 43.4 % (42.0-52.0); Hemoglobin 15.6 g/dl (14.0-18.0); Imm Gran Abs Auto 0.01 X10*3/uL (0.00-0.03); Imm Gran Pct Auto 0.1 % (0.0-0.4); Lymphocytes Absolute Auto 2.6 X10*3/uL (1.2-4.9); Lymphocytes Percent Auto 35.7 % (20-40); Mean Corpuscular HGB Conc 35.9 g/dl (31.0-36.0); Mean Corpuscular Hemoglobin 30.2 pg (27.0-33.0); Mean Corpuscular Volume 83.9 fL (80.0-98.0); Mean Platelet Volume 9.5 fL (9.4-12.4); Monocytes Absolute Auto 0.5 X10*3/uL (0.1-1.2); Monocytes Percent Auto 6.8 % (2-11); Neutrophils Absolute Auto 4.1 x10*3/uL (2.0-8.3); Neutrophils Percent Auto 55.7 % (45-73); Platelet Count 307 X10*3/uL (160-400); Red Blood Count 5.17 X10*6/uL (4.60-5.80); Red Cell Distribution Width 13.4 % (11.0-16.0); White Blood Count 7.3 X10*3/uL (4.8-10.8)
[2022-01-10 19:46] VITALS: BP 154/96; PULSE 118; RESP 18; TEMP 36.8; O2SAT 96
[2022-01-10 19:59] LABS: COVID-19 Test Negative (Negative)
[2022-01-10 20:04] VITALS: BP 136/94; PULSE 111; RESP 18; TEMP 36.9; O2SAT 97; BMI 35.5
[2022-01-10 20:04] LABS: Alanine Aminotransferase 73 U/L (0-40); Albumin Level 4.5 g/dL (3.5-5.0); Alkaline Phosphatase 83 U/L (39-117); Anion Gap 17 (12-20); Aspartate Amino Transferase 85 U/L (5-37); Bilirubin Total 0.5 mg/dL (0.0-1.0); Blood Urea Nitrogen 17 mg/dL (9-16); Calcium 8.5 mg/dL (8.4-10.2); Carbon Dioxide 23 mmol/L (22-29); Chloride 105 mmol/L (96-108); Estimated Glomerular Filt Rate > 60; Ethanol 423 mg/dL; Glucose Random 117 mg/dL (60-115); Magnesium 2.1 mg/dL (1.6-2.6); Potassium 3.9 mmol/L (3.3-5.1); Sodium 141 mmol/L (135-145); Total Protein 7.9 g/dL (6.5-8.0)
--- NOTE | 2022-01-10 20:36 | PC.NURSE ---
pt is asking over and over to go home. pt states he has no friends with a drivers lic, pt wants to go home via uber or taxi. pt instructed to find a sober ride home. sec at bedside to instruct the pt to not wander the er. pt has torn off his id band mulit times.
[2022-01-10 20:42] LABS: Appearance Urine Clear; Color Urine Yellow; Glucose Urine UA Negative (Negative); Leukocyte Esterase Urine Negative (Negative); Nitrite Urine Negative (Negative); PH 5.5 (5.0-9.0); Specific Gravity - Urine 1.015 (1.005-1.025); Urine Blood Negative (Negative); Urine Ketones Negative (Negative); Urine Protein Trace mg/dL (Neg-Trace)
[2022-01-10 20:56] LABS: Amphetamine Screen Urine Not Detected (Not Detect); Barbiturates, Urine Not Detected (Not Detect); Benzodiazepines Screen Urine Not Detected (Not Detect); Cannabinoid Screen Urine Not Detected (Not Detect); Cocaine Screen Urine Not Detected (Not Detect); Fentanyl, urine Not Detected (Not Detect); Opiate Screen Urine Not Detected (Not Detect); Phencyclidine Screen Urine Not Detected (Not Detect)
== END 2022-01-11 07:40 | disposition home or self-care (01) ==
PROVIDERS: Physician Assistant; Emergency Provider Emergency Medicine; PCP Internal Medicine
DX: F10.120 Alcohol abuse with intoxication, uncomplicated (principal); Y90.8 Blood alcohol level of 240 mg/100 ml or more; F17.200 Nicotine dependence, unspecified, uncomplicated; F12.90 Cannabis use, unspecified, uncomplicated; Z20.822 Contact with and (suspected) exposure to COVID-19
CPT/HCPCS: 80053; 80307; 81003; 82077; 83735; 85025; 87635; 99283

== ENCOUNTER 2022-06-13 14:47 | Emergency (ER) | payer MEDICARE, SELFPAY ==
[2022-06-13 14:56] VITALS: BP 160/100; PULSE 113; O2SAT 98
--- NOTE | 2022-06-13 15:04 | ED_ITS ---
HPI - Dizziness General Chief Complaint: General Medical <Naheed Pinto NP - Last Filed: 06/13/22 15:07> Stated Complaint: HTN <Naheed Pinto NP - Last Filed: 06/13/22 15:07> Time Seen by Provider: 06/13/22 15:26 <Naheed Pinto NP - Last Filed: 06/13/22 15:07> Source: patient and EMS <ELIO Woodruff - Last Filed: 06/13/22 15:57> Mode of arrival: EMS <ELIO Woodruff - Last Filed: 06/13/22 15:57> Limitations: no limitations <ELIO Woodruff Last Filed: 06/13/22 15:57> History of Present Illness HPI Narrative: 41 yo male with alcohol use disorder who presents to the ER via EMS for evaluation of anxiety attack associated with dizziness and elevated BP. He states he has been under a great deal of stress at home. He reports his blood pressure was 160/100, he does not have any known blood pressure issues. He states he has had a dry cough and wheezing for the last week. He is worried about COVID. He does not want to disclose the stress at home. He states his father is sick. He wants to leave, saying he is going to be trapped here in the see gets out of here with a bus pass soon. He denies any current symptoms. Blood pressure on arrival to the ER is 130 systolic. He has a dry cough. He denies any current chest pain, shortness of breath, fever, chills, diarrhea or abdominal pain. <ELIO Woodruff - Last Filed: 06/13/22 15:57> MD elicited complaint: dizziness and other (anxiety) <ELIO Woodruff - Last Filed: 06/13/22 15:57> Onset (ago): unknown <ELIO Woodruff Last Filed: 06/13/22 15:57> Timing: sudden onset <ELIO Woodruff Last Filed: 06/13/22 15:57> Description: lightheadedness <ELIO Woodruff Last Filed: 06/13/22 15:57> Context: anxiety <ELIO Woodruff Last Filed: 06/13/22 15:57> History of similar symptoms: Yes <ELIO Woodruff - Last Filed: 06/13/22 15:57> Associated symptoms: other (cough, wheezing) <ELIO Woodruff - Last Filed: 06/13/22 1 5:57> Related Data Home Medications: Previous Rx's Medication Instructions Recorded albuterol sulfate 90 mcg/actuation 1 inh inhalation QID PRN shortness 06/13/22 aerosol inhaler of breath or wheezing #6.7 grams azithromycin 250 mg tablet See Rx Instructions PO .COMPLEX #6 06/13/22 (Zithromax Z-Miko) tabs prednisone 20 mg tablet 40 mg PO DAILY #10 tabs 06/13/22 <Naheed Pinto NP - Last Filed: 06/13/22 15:07> Allergies/Adverse Reactions: Allergies Allergy/AdvReac Type Severity Reaction Status Date / Time No Known Allergies Allergy Unverified 01/21/20 15:51 <Naheed Pinto NP - Last Filed: 06/13/22 15:07> Review of Systems Review of Systems: Yes all other systems are reviewed and are negative <ELIO Woodruff - Last Filed: 06/13/22 15:57> [facility] Social History Social History: Social History Alcohol intake: current Alcohol intake frequency: 3 or more drinks per day Alcohol type: beer Patient Tobacco Use Status: Current everyday Tobacco user Substance Use Type: Marijuana Advance Directives: No Advance Directives Information Provided: No <Naheed Pinto NP - Last Filed: 06/13/22 15:07> Physical Exam Vital Signs: Vital Signs: Last Vital Signs Temp 98 F 06/13/22 15:05 Pulse 101 H 06/13/22 15:05 Resp 19 06/13/22 15:05 BP 133/86 06/13/22 15:05 Pulse Ox 99 06/13/22 15:05 O2 Del Method 06/13/22 15:05 BMI result Body Mass Index 34.2 <Naheed Pinto NP - Last Filed: 06/13/22 15:07> Vital Signs: Last Vital Signs Temp 98 F 06/13/22 15:05 Pulse 101 H 06/13/22 15:05 Resp 19 06/13/22 15:05 BP 133/86 06/13/22 15:05 Pulse Ox 99 06/13/22 15:05 O2 Del Method 06/13/22 15:05 BMI result Body Mass Index 34.2 <ELIO Woodruff - Last Filed: 06/13/22 15:57> Appearance: Alert. Oriented X3. No acute distress. Eyes: Pupils equal, round and reactive to light. ENT: Pharynx normal. Neck: Normal inspection. Neck supple. CVS: Normal heart rate and rhythm. Pulses normal. Respiratory: No respiratory distress. Breath sounds coarse throughout. Speaking in complete sentences. dry cough Skin: Skin warm and dry. Normal skin color. Normal skin turgor. No rashes. Extremities: No lower extremity edema. Neuro: Oriented X 3. No motor deficit. No sensory deficit. Steady gait <ELIO Woodruff Last Filed: 06/13/22 15:57> Course Course Course Narrative: This is a rapid medical exam. deferred additional HPI, ROS, PE to primary provider. 41 yo male with history of anxiety, depression here with complaints of dizziness, feels blood pressure is elevated, also cough and wants COVID test. Will obtain covid screen. Blood pressure normal in triage. <Naheed Pinto NP - Last Filed: 06/13/22 15:07> Reevaluation(s) Reevaluation #1: Patient wants to leave. Lungs are coarse throughout, he is an active smoker with cough and wheeze x1 week per his report. COVID is negative. VS are stable. Will d/c home with albuterol inhaler, prednisone and z-pack. stable for discharge. <ELIO Woodruff - Last Filed: 06/13/22 15:57> Medical Decision Making Differential Diagnosis Differential Diagnoses: The differential diagnosis associated with the presentation includes <ELIO Woodruff Last Filed: 06/13/22 15:57> covid, flu, rsv, other viral illness, pneumonia, dehydration, metabolic derangement, stress reaction, allergies <ELIO Woodruff Last Filed: 06/13/22 15:57> Lab Data MDM Lab Attestation statement: I reviewed the patient's lab results. <ELIO Woodruff - Last Filed: 06/13/22 15:57> Labs: Lab Results 06/13/22 Range/Units 15:16 COVID-19 (LATRICE) Negative (Negative) COVID-19 Clin Com See Note <Naheed Pinto NP - Last Filed: 06/13/22 15:07> Lab Results 06/13/22 Range/Units 15:16 COVID-19 (LATRICE) Negative (Negative) COVID-19 Clin Com See Note <ELIO Woodruff - Last Filed: 06/13/22 15:57> Tests considered The following testing was considered but not selected: CXR and labs considered - patient wants to leave <ELIO Woodruff - Last Filed: 06/13/22 15:57> Prescription Management I considered prescription management with: Antibiotic <ELIO Woodruff Last Filed: 06/13/22 15:57> Critical Care Time Critical Care Time Critical Care Time: No <ELIO Woodruff - Last Filed: 06/13/22 15:57> Discharge Plan Discharge Clinical Impression: Viral URI with cough <Naheed Pinto NP - Last Filed: 06/13/22 15:07> Patient Disposition: Home, Self-Care <Naheed Pinto NP - Last Filed: 06/13/22 15:07> Instructions: Viral Syndrome (ED) <Naheed Pinto NP - Last Filed: 06/13/22 15:07> Additional Instructions: Your COVID-19 test is NEGATIVE Recommend rest, drink plenty of fluids. Take the prescribed medications as directed Take over the counter cold/flu medications as needed for your symptoms. Follow up with your doctor. If you develop new or worsening symptoms call 911 or come back to the ER for f urther evaluation. <Naheed Pinto NP - Last Filed: 06/13/22 15:07> Prescriptions: New azithromycin [Zithromax Z-Miko] 250 mg tablet See Rx Instructions .ROUTE .COMPLEX Qty: 6 0RF Rx Instructions: take 500 mg today (day 1), then 250 mg for 4 days (days 2-5) prednisone 20 mg tablet 40 mg PO DAILY Qty: 10 0RF albuterol sulfate 90 mcg/actuation HFA aerosol inhaler 1 inh inhalation QID PRN (Reason: shortness of breath or wheezing) Qty: 6.7 0RF <Naheed Pinto NP - Last Filed: 06/13/22 15:07> Interventions: ED Discharge Assessment Last Done: 06/13/22 15:55 <Naheed Pinto NP - Last Filed: 06/13/22 15:07>
[2022-06-13 15:05] VITALS: BP 133/86; PULSE 101; RESP 19; TEMP 36.6; O2SAT 99; BMI 34.2
[2022-06-13 15:50] LABS: COVID-19 Test Negative (Negative); IDNOW Serial# 6674DD1D
== END 2022-06-13 15:55 | disposition home or self-care (01) ==
PROVIDERS: Nurse Practitioner Family; Emergency Provider Emergency Medicine
DX: J06.9 Acute upper respiratory infection, unspecified (principal); R05.9 Cough, unspecified; Z20.822 Contact with and (suspected) exposure to COVID-19; F41.9 Anxiety disorder, unspecified; F17.200 Nicotine dependence, unspecified, uncomplicated; F12.90 Cannabis use, unspecified, uncomplicated
CPT/HCPCS: 87635; 99282; 99283

== ENCOUNTER 2022-06-26 04:31 | Emergency (ER) | payer MEDICARE, SELFPAY ==
[2022-06-26 04:40] VITALS: BP 148/92; PULSE 96; O2SAT 97
[2022-06-26 06:18] VITALS: BP 112/74; PULSE 94; RESP 16; TEMP 36.9; O2SAT 97; BMI 34.4
[2022-06-26 07:59] VITALS: BP 128/61; PULSE 109; RESP 16; TEMP 36.2; O2SAT 96
--- NOTE | 2022-06-26 08:59 | ED_ITS ---
HPI - Alcohol General Chief Complaint: ETOH/Substance Use Stated Complaint: etoh Time Seen by Provider: 06/26/22 08:58 Source: patient Mode of arrival: ambulatory Limitations: no limitations History of Present Illness HPI narrative: patient is here for detox, has been drinking heavily for 2 weeks. Patient wants some services complaint: alcohol intoxication Chronic alcohol use: Yes Previous visits for alcohol intoxication: Yes Associated symptoms: denies other symptoms Related Data Previous Rx's Medication Instructions Recorded albuterol sulfate 90 mcg/actuation 1 inh inhalation QID PRN shortness 06/13/22 aerosol inhaler of breath or wheezing #6.7 grams azithromycin 250 mg tablet See Rx Instructions PO .COMPLEX #6 06/13/22 (Zithromax Z-Miko) tabs prednisone 20 mg tablet 40 mg PO DAILY #10 tabs 06/13/22 Allergies Allergy/AdvReac Type Severity Reaction Status Date / Time No Known Allergies Allergy Unverified 01/21/20 15:51 Review of Systems Review of Systems: Yes all other systems are reviewed and are negative [facility] Social History Social History Alcohol intake: current Alcohol intake frequency: 3 or more drinks per day Alcohol type: beer Patient Tobacco Use Status: Current everyday Tobacco user Substance Use Type: Marijuana Advance Directives: No Advance Directives Information Provided: Yes Physical Exam ED Vital Signs: Vital Signs - 24 hr 06/26/22 06:18 06/26/22 07:59 Temperature 98.4 F 97.2 F Pulse Rate 94 109 H Respiratory Rate 16 16 Blood Pressure 112/74 128/61 Pulse Oximetry 97 96 Oxygen Delivery Method Room Air Room Air BMI result Body Mass Index 34.4 Const General: healthy appearing Nutritional Appearance: average body habitus Orientation/consciousness: oriented to person and patient oriented x3 Limitations: no limitations HENMT Head: Yes normal to inspection Ears: external ears normal General nose exam: Normal external nose present Mouth: Normal oral and palatal mucosa present and oropharynx normal Throat: Yes posterior oropharynx normal Eyes General: appearance normal, both eyes and all related structures Neck Neck: Yes normal visual inspection Chest Chest palpation & inspection: normal inspection of the chest Resp Auscultation: clear to auscultation bilaterally Cardio Jugular venous distension: no JVD Rate: regular rate Rhythm: regular rhythm Heart sounds: S1 normal heart sound present and S2 normal heart sound present GI Inspection: Yes normal to inspection Palpation (GI): Soft to palpation, nontender and No hepatosplenomegaly present Auscultation: normal bowel sounds General: Yes no CVA tenderness Back/Spine/Pelvis Back: no CVA tenderness Skin General skin exam: no rashes or lesions noted Neuro General: oriented to person and patient oriented x3 Cranial nerves: Yes CN's II-XII intact bilaterally Motor exam (neuro): 5/5 motor strength present throughout Extrem General: Yes normal to inspection Psych Appearance: grossly normal Course Reevaluation(s) Reevaluation #1: patient ready for discharge will be seen by care team Time: 09:04 Medical Decision Making Differential Diagnosis Differential Diagnoses: The differential diagnosis associated with the pres entation includes (alcohol intoxication, alcohol withdrawal) Consult Healthcare Provider Management of the patient was discussed with: Forging Engineer (CARE team) Tests considered The following testing was considered but not selected: I considered obtaining ETOH and urine tox along with basic chemistry but they were not indicated at this time Social Determinants Patient?s care significantly limited by Social Determinants of Health including: Alcoholism and drug addiction in family Discharge Plan Discharge Clinical Impression: Alcoholism Patient Disposition: Home, Self-Care Instructions: Abuse of Alcohol (ED), Alcohol Dependence (ED) Prescriptions: No Action azithromycin [Zithromax Z-Miko] 250 mg tablet See Rx Instructions .ROUTE .COMPLEX Qty: 6 0RF Rx Instructions: take 500 mg today (day 1), then 250 mg for 4 days (days 2-5) prednisone 20 mg tablet 40 mg PO DAILY Qty: 10 0RF albuterol sulfate 90 mcg/actuation HFA aerosol inhaler 1 inh inhalation QID PRN (Reason: shortness of breath or wheezing) Qty: 6.7 0RF Referrals: Physician,Unknown J [Primary Care Provider] - 1 week
== END 2022-06-26 10:11 | disposition home or self-care (01) ==
PROVIDERS: Emergency Provider Emergency Medicine
DX: F10.20 Alcohol dependence, uncomplicated (principal); Y90.9 Presence of alcohol in blood, level not specified
CPT/HCPCS: 99283

== ENCOUNTER 2022-07-13 01:56 | Emergency (ER) | payer MEDICARE, SELFPAY ==
--- NOTE | ~2022-07-13 | XR_ITS ---
EXAMINATION: XR FOOT, LEFT CLINICAL INFORMATION: Evaluate for fracture COMPARISON: None TECHNIQUE: AP, lateral, and oblique views of the left foot. FINDINGS: There is a obliquely oriented fracture of the fifth metatarsal neck with one half shaft width medial displacement of the distal fracture fragment and approximately 7 mm proximal displacement. The margins of the fracture somewhat ill-defined, and there is apparent callus formation between the bone fragments. No additional fractures. Pes planus. Soft tissues unremarkable. XR/XR foot LT 2V IMPRESSION: * Subacute displaced fracture of the fifth metatarsal neck as described, with evidence of early healing. * Pes planus. * No additional fractures.
[2022-07-13 02:06] VITALS: BP 136/102; BP 150/100; PULSE 102; PULSE 120; RESP 16; TEMP 37; O2SAT 94; O2SAT 97; BMI 35.9
[2022-07-13 02:58] VITALS: BP 132/79; O2SAT 100
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
[2022-07-13 05:48] VITALS: BP 117/62; PULSE 106; RESP 18; TEMP 36.9; O2SAT 97
--- NOTE | 2022-07-13 06:22 | PC.NURSE ---
Pt. has been in a hallway bed. Pt. difficult to direct at times as pt. keeps getting up out of bed and walking around. Pt. is currently sitting in his bed, pending a splint and crutches for a broken toe. Pt. denies SI/HI. No SS of withdrawal noted. CIWA completed.
--- NOTE | 2022-07-13 06:40 | MHC.EDTECH ---
pt refusing splint and crutches. Dr Markham and JESS alvares.
--- NOTE | 2022-07-13 06:43 | PC.NURSE ---
Pt. refused the splint and the crutches ordered by the MD. Pt. states he has a walking boot at home that he will use. This RN and tech stressed the importance of staying off the foot, however, pt. was adamant that he didn't want either splint or crutches. Provided pt. with bus passes as he has no other transportation.
== END 2022-07-13 06:51 | disposition home or self-care (01) ==
PROVIDERS: Emergency Provider Emergency Medicine
DX: F10.129 Alcohol abuse with intoxication, unspecified (principal); S92.352A Displaced fracture of fifth metatarsal bone, left foot, initial encounter for closed fracture; X58.XXXA Exposure to other specified factors, initial encounter; Y93.9 Activity, unspecified; Y92.9 Unspecified place or not applicable; Y99.9 Unspecified external cause status
CPT/HCPCS: 73620; 99283; 99284

== ENCOUNTER 2022-08-25 17:42 | Emergency (ER) | payer MEDICARE, SELFPAY ==
[2022-08-25 17:56] VITALS: BP 145/97; PULSE 108; RESP 16; TEMP 36.8; O2SAT 96; BMI 32.1
[2022-08-25 18:03] VITALS: RESP 18
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
--- NOTE | 2022-08-25 18:54 | PC.NURSE ---
pt up and walking around, conversing with staff, no apparent distress. Pt calm and cooperative
--- NOTE | 2022-08-25 19:12 | PC.NURSE ---
pt ambulating with steady gait around department, speaking in clear full sentences, respirations even and unlabored, alert and oriented x4, skin pwd, no apparent distress. Both this RN and MD feel comfortable sending patient home
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
== END 2022-08-25 19:19 | disposition home or self-care (01) ==
PROVIDERS: Emergency Provider Emergency Medicine
DX: F10.220 Alcohol dependence with intoxication, uncomplicated (principal); Y90.9 Presence of alcohol in blood, level not specified
CPT/HCPCS: 99283; 99285

== ENCOUNTER 2022-08-31 14:13 | Emergency (ER) | payer MEDICARE, SELFPAY ==
--- NOTE | ~2022-08-31 | CT_ITS ---
EXAMINATION: CT brain and CT cervical spine without contrast. CLINICAL INDICATION: Fall. Pain. COMPARISON: CT brain and CT cervical spine 06/03/2016. TECHNIQUE: 5 mm thin axial and reformatted 2 mm thin sagittal and coronal images of brain were obtained. DLP 1458. Subsequently axial 3 mm thin and reformatted 2 mm thin sagittal and coronal images of cervical spine were obtained. DLP [address] examination was performed using dose optimization technique as appropriate, variously including the following: Automated exposure control Adjustment of MA and/or KV according to patient size(this includes techniques or standardized protocols for targeted exams where dose is matched to indication/reason for exam; extremities or head. Use of iterative reconstruction techniques. FINDINGS: BRAIN: There is no acute intra-axial, extra-axial bleed, masses or midline shift. There is no acute infarction evolution. There is no edema. The horn to white matter differentiation is maintained normal. The lateral ventricles are symmetrical in size and configuration without enlargement. No abnormality seen in the posterior fossa. Bone windows reveal no calvarial abnormality. There is no scalp soft tissue abnormality. Bilateral paranasal sinuses and mastoid air cells are well-aerated. There is no scalp soft tissue abnormality seen. CERVICAL SPINE: There is mild straightening of cervical lordosis. The vertebral heights and alignment is normal. Mild loss of C3-C4 and C4-C5 disc height is seen. Rest of the disc heights are normal. The craniovertebral junction and the C1-C2 alignment is preserved. No visible acute fracture, dislocation or subluxation seen. The prevertebral and paravertebral soft tissues are normal. The tracheal and pharyngeal airway is widely patent. The thyroid lobes are symmetric and normal. The submandibular glands are symmetrical and normal. No abnormal size neck lymph nodes or mass seen. CT/CT cervical spine wo IV con IMPRESSION: 1. No acute intracranial process seen. 2. There is no acute fracture, dislocation or subluxation in cervical spine. Mild straightening of cervical lordosis likely spasm. Degenerative disc changes C3-C4 and C4-C5 disc levels.
[2022-08-31 14:39] VITALS: BP 180/92; PULSE 102; RESP 16; TEMP 36.6; O2SAT 96; BMI 31.5
--- NOTE | 2022-08-31 14:48 | PC.NURSE ---
Pt very intoxicated/unsteady on feet. Collar in place, abrasion noted to pts left cheek
--- NOTE | 2022-08-31 15:02 | ED.GENADULT ---
HPI - General Adult General Chief complaint: ETOH/Substance Use <ELIO Aviles - Last Filed: 08/31/22 16:31> Stated complaint: unwitnessed fall, ETOH <ELIO Aviles - Last Filed: 08/31/22 16:31> Time Seen by Provider: 08/31/22 15:01 <ELIO Aviles - Last Filed: 08/31/22 16:31> Source: patient and EMS <ELIO Aviles - Last Filed: 08/31/22 16:31> Mode of arrival: EMS <ELIO Aviles Last Filed: 08/31/22 16:31> Limitations: no limitations <ELIO Aviles Last Filed: 08/31/22 16:31> History of Present Illness HPI narrative: Patient is a 42 year old assigned male at with a history of alcohol abuse presenting to the emergency department today after a fall. EMS states that the patient was found on the ground next to a bench and was previously seen on the bench, so it is assumed that he suffered a fall. Patient denies any dizziness, lightheadedness, abdominal pain, nausea, vomiting, fever, chills, blurry vision, double vision, loss of vision, chest pain, difficulty breathing, shortness of breath, back pain, night sweats, pain with urination, increased urinary frequency, increased urinary urgency, blood in his urine or stool, syncope or a near syncopal episode, bowel incontinence, bladder incontinence, bowel retention, bladder retention, or any other complaints at this time. <ELIO Aviles - Last Filed: 08/31/22 16:31> Onset (ago): minute(s) <ELIO Aviles - Last Filed: 08/31/22 16:31> Location: head <ELIO Aviles Last Filed: 08/31/22 16:31> Severity: mild <ELIO Aviles - Last Filed: 08/31/22 16:31> Relieving factors: none <ELIO Aviles Last Filed: 08/31/22 16:31> Exacerbating factors: none <ELIO Aviles Last Filed: 08/31/22 16:31> Associated symptoms: denies other symptoms <ELIO Aviles Last Filed: 08/31/22 16:31> Treatments prior to arrival: none <ELIO Aviles Last Filed: 08/31/22 16:31> Related Data Home medications: Previous Rx's Medication Instructions Recorded albuterol sulfate 90 mcg/actuation 1 inh inhalation QID PRN shortness 06/13/22 aerosol inhaler of breath or wheezing #6.7 grams azithromycin 250 mg tablet See Rx Instructions PO .COMPLEX #6 06/13/22 (Zithromax Z-Miko) tabs prednisone 20 mg tablet 40 mg PO DAILY #10 tabs 06/13/22 ibuprofen 600 mg tablet 600 mg PO TID PRN pain #20 tabs 07/13/22 <ELIO Aviles Last Filed: 08/31/22 16:31> Allergies/adverse reactions: Allergies Allergy/AdvReac Type Severity Reaction Status Date / Time No Known Allergies Allergy Verified 08/25/22 18:02 <ELIO Aviles Last Filed: 08/31/22 16:31> Review of Systems Constitutional: Constitutional: Reports no additional constitutional complaints, Denies chills, Denies fever(s) and Denies night sweats <ELIO Aviles Last Filed: 08/31/22 16:31> Eyes: Eyes: Reports no additional eye complaints, Denies blurry vision, Denies change in vision, Denies diplopia, Denies eye discharge, Denies loss of vision and Denies eye pain <ELIO Aviles Last Filed: 08/31/22 16:31> ENT: Denies dizziness <ELIO Aviles Last Filed: 08/31/22 16:31> Cardiovascular: Cardiovascular: Reports no additional cardiovascular complaints, Denies chest pain, Denies lightheadedness, Denies Loss of Consciousness and Denies dyspnea <ELIO Aviles Last Filed: 08/31/22 16:31> Respiratory: Respiratory: Reports no additional respiratory complaints and Denies dyspnea <ELIO Aviles Last Filed: 08/31/22 16:31> Gastrointestinal: Gastrointestinal: Reports no additional gastrointestinal complaints, Denies abdominal pain, Denies melena, Denies hematochezia, Denies change in bowel habits and Denies change in stool character <ELIO Aviles - Last Filed: 08/31/22 16:31> Genitourinary: Genitourinary: Reports no additional male genitourinary complaints, Denies hematuria, Denies oliguria, Denies difficulty urinating, Denies dysuria, Denies urinary frequency, Denies urinary hesitancy, Denies urinary incontinence and Denies urinary urgency <ELIO Aviles - Last Filed: 08/31/22 16:31> Musculoskeletal: Musculoskeletal: Reports no additional musculoskeletal complaints, Denies numbness and Denies tingling <ELIO Aviles - Last Filed: 08/31/22 16:31> Neurologic: Denies dizziness, Denies loss of vision, Denies numbness and Denies tingling <ELIO Aviles - Last Filed: 08/31/22 16:31> Psychiatric: Psychiatric: Reports no additional psychiatric complaints <ELIO Aviles - Last Filed: 08/31/22 16:31> Endocrine: Endocrine: Reports no additional endocrine complaints <ELIO Aviles - Last Filed: 08/31/22 16:31> Hematologic/Lymphatic: Hematologic/Lymphatic: Reports no additional hematologic/lymphatic complaints <ELIO Aviles - Last Filed: 08/31/22 16:31> Allergic/Immunologic: Allergic/Immunologic: Reports no additional allergic/immunologic complaints <ELIO Aviles - Last Filed: 08/31/22 16:31> PMFSH Past Medical History Attestation statement: The following information was validated with the patient. <ELIO Aviles - Last Filed: 08/31/22 16:31> Source: old records reviewed and nursing notes reviewed <ELIO Aviles - Last Filed: 08/31/22 16:31> Medical History: Medical History Alcohol abuse <ELIO Aviles - Last Filed: 08/31/22 16:31> Social History Social History: Social History Alcohol intake: current Alcohol intake frequency: 3 or more drinks per day Alcohol type: beer Patient Tobacco Use Status: Current everyday Tobacco user Substance Use Type: Marijuana Advance Directives: No Advance Directives Information Provided: No <ELIO Aviles - Last Filed: 08/31/22 16:31> Physical Exam ED Vital Signs: Vital Signs - 24 hr 08/31/22 14:39 08/31/22 15:53 Temperature 97.9 F Pulse Rate 102 H 101 H Respiratory Rate 16 16 Blood Pressure 180/92 H 91/66 Pulse Oximetry 96 96 Oxygen Delivery Method Room Air Room Air BMI result Body Mass Index 31.5 <ELIO Aviles - Last Filed: 08/31/22 16:31> Vital Signs - 24 hr 08/31/22 14:39 08/31/22 15:53 Temperature 97.9 F Pulse Rate 102 H 101 H Respiratory Rate 16 16 Blood Pressure 180/92 H 91/66 Pulse Oximetry 96 96 Oxygen Delivery Method Room Air Room Air BMI result Body Mass Index 31.5 <Austen White - Last Filed: 08/31/22 16:51> Const General: cooperative, no acute distress, alert and awake <ELIO Aviles - Last Filed: 08/31/22 16:31> Nutritional Appearance: well nourished <ELIO Aviles - Last Filed: 08/31/22 16:31> Orientation/consciousness: patient oriented x3 <ELIO Aviles - Last Filed: 08/31/22 16:31> Limitations: no limitations <ELIO Aviles - Last Filed: 08/31/22 16:31> HENMT Other: small abrasion to the left cheek, no active bleeding <ELIO Aviles Last Filed: 08/31/22 16:31> Ears: hearing grossly normal bilaterally and external ears normal <ELIO Aviles - Last Filed: 08/31/22 16:31> General nose exam: Normal external nose present, no nasal discharge noted and no epistaxis <ELIO Aivles - Last Filed: 08/31/22 16:31> Face and sinus: Yes normal facial exam, No abrasion and No laceration <ELIO Aviles Last Filed: 08/31/22 16:31> Mouth: Normal oral and palatal mucosa present, no drooling and no muffled voice <ELIO Aviles Last Filed: 08/31/22 16:31> Eyes General: appearance normal, both eyes and all related structures <ELIO Aviles - Last Filed: 08/31/22 16:31> Periorbital: periorbital findings normal <Lilian Amador PA - Last Filed: 08/31/22 16:31> Eyelids: Yes eyelids normal <Lilian Amador PA - Last Filed: 08/31/22 16:31> Conjunctivae: conjunctivae normal <Lilian Amador PA - Last Filed: 08/31/22 16:31> Pupils: Equal, round and reactive pupils present <Lilian Amador PA - Last Filed: 08/31/22 16:31> EOM: EOMs intact bilaterally <Lilian Amador [place] - Last Filed: 08/31/22 16:31> Neck Neck: Yes normal visual inspection, Yes full ROM and Yes no lymphadenopathy <Lilian Amador [place] - Last Filed: 08/31/22 16:31> Chest Chest palpation & inspection: normal inspection of the chest <Lilian Amador [place] - Last Filed: 08/31/22 16:31> Resp Effort & Inspection: normal respiratory effort and able to speak in complete sentences <Lilian Amador [place] - Last Filed: 08/31/22 16:31> GI Inspection: Yes normal to inspection <Lilian Amador [place] - Last Filed: 08/31/22 16:31> Neuro General: patient oriented x3 and moves all extremities <Lilian Amador [place] - Last Filed: 08/31/22 16:31> Cranial nerves: Yes Equal, round and reactive pupils present <Lilian Amador [place] - Last Filed: 08/31/22 16:31> Cognition (Neuro): normal cognition <Lilian Amador PA - Last Filed: 08/31/22 16:31> Motor exam (neuro): 5/5 motor strength present throughout <Lilian Amador PA - Last Filed: 08/31/22 16:31> Sensory Exam: Normal double simultaneous stimulation for sensation <Lilian Amador PA - Last Filed: 08/31/22 16:31> Coordination: [id number] test normal <Lilian mAador PA - Last Filed: 08/31/22 16:31> Extrem General: Yes normal to inspection, Yes full ROM and Yes capillary refill normal <ELIO Aviles - Last Filed: 08/31/22 16:31> Psych Appearance: grossly normal <ELIO Aviles - Last Filed: 08/31/22 16:31> Mental Status: mental status grossly normal <ELIO Aviles - Last Filed: 08/31/22 16:31> Affect: normal affect <ELIO Aviles - Last Filed: 08/31/22 16:31> Attitude: cooperative <ELIO Aviles - Last Filed: 08/31/22 16:31> Thought process: Normal thought process present <ELIO Aviles - Last Filed: 08/31/22 16:31> Thought content: Normal thought content present <ELIO Aviles Last Filed: 08/31/22 16:31> Insight: Good insight present (Psych) <ELIO Aviles - Last Filed: 08/31/22 16:31> Course Reevaluation(s) Reevaluation #1: Patient received in sign-out at [address] imaging to rule out traumatic injury. RV the patient's CT brain and cervical spine did not show any evidence of acute traumatic injuries. Patient is requesting discharge and given that he has no evidence of traumatic injuries he will be discharged. He has been ambulatory with a steady, even gait <Austen White - Last Filed: 08/31/22 16:51> Time: 16:50 <Austen White - Last Filed: 08/31/22 16:51> Medical Decision Making Medical Decision Making [facility] Narrative: Patient is a 42 year old assigned male at with a history of alcohol abuse presenting to the emergency department today after a fall. Patient's physical exam showed a small abrasion to the left cheek with no active bleeding or gaping areas. Patient's head and c-spine CTs are pending. Patient signed out to Austen ROBERSON <ELIO Aviles - Last Filed: 08/31/22 16:31> Differential Diagnosis Differential Diagnoses: The differential diagnosis associated with the presentation includes <ELIO Aviles Last Filed: 08/31/22 16:31> abrasion, fall, alcohol use <ELIO Aviles - Last Filed: 08/31/22 16:31> Lab Data [facility] Lab Attestation statement: I reviewed the patient's lab results. <ELIO Aviles - Last Filed: 08/31/22 16:31> Labs: Lab Results 08/31/22 08/31/22 Range/Units 15:08 15:08 Urine Color Yellow Urine Appearance Clear Urine pH 5.0 (5.0-9.0) Ur Specific Taylor <= 1.005 (1.005-1.025) Urine Protein 30 (1+) H (Neg-Trace) mg/dL Urine Glucose (UA) Negative (Negative) mg/dL Urine Ketones Negative (Negative) mg/dL Urine Blood Trace H (Negative) Urine Nitrite Negative (Negative) Ur Leukocyte Esterase Negative (Negative) Urine RBC 0-2 (0-2) /HPF Urine WBC 0-5 (0-5) /HPF Ur Squamous Epith Cells 0-2 (0-2) /HPF Urine Bacteria None Seen (None Seen) Hyaline Casts 0-2 (0-2) /LPF Urine Opiates Screen Not Detected (Not Detect) Urine Fentanyl Screen Not Detected (Not Detect) Ur Barbiturates Screen Not Detected (Not Detect) Ur Phencyclidine Scrn Not Detected (Not Detect) Ur Amphetamines Screen Not Detected (Not Detect) U Benzodiazepines Scrn Not Detected (Not Detect) Urine Cocaine Screen Not Detected (Not Detect) U Marijuana (THC) Screen Not Detected (Not Detect) <ELIO Aviles - Last Filed: 08/31/22 16:31> Lab Results 08/31/22 08/31/22 Range/Units 15:08 15:08 Urine Color Yellow Urine Appearance Clear Urine pH 5.0 (5.0-9.0) Ur Specific Taylor <= 1.005 (1.005-1.025) Urine Protein 30 (1+) H (Neg-Trace) mg/dL Urine Glucose (UA) Negative (Negative) mg/dL Urine Ketones Negative (Negative) mg/dL Urine Blood Trace H (Negative) Urine Nitrite Negative (Negative) Ur Leukocyte Esterase Negative (Negative) Urine RBC 0-2 (0-2) /HPF Urine WBC 0-5 (0-5) /HPF Ur Squamous Epith Cells 0-2 (0-2) /HPF Urine Bacteria None Seen (None Seen) Hyaline Casts 0-2 (0-2) /LPF Urine Opiates Screen Not Detected (Not Detect) Urine Fentanyl Screen Not Detected (Not Detect) Ur Barbiturates Screen Not Detected (Not Detect) Ur Phencyclidine Scrn Not Detected (Not Detect) Ur Amphetamines Screen Not Detected (Not Detect) U Benzodiazepines Scrn Not Detected (Not Detect) Urine Cocaine Screen Not Detected (Not Detect) U Marijuana (THC) Screen Not Detected (Not Detect) <Austen White - Last Filed: 08/31/22 16:51> Independent Historian Clinical information obtained from an independent historian. History obtained from or confirmed by: EMS <ELIO Aviles - Last Filed: 08/31/22 16:31> Discharge Plan Discharge Clinical Impression: Alcoholic intoxication <ELIO Aviles - Last Filed: 08/31/22 16:31> Patient Disposition: Home, Self-Care <ELIO Aviles - Last Filed: 08/31/22 16:31> Instructions: Abuse of Alcohol (ED) <ELIO Aviles - Last Filed: 08/31/22 16:31> Additional Instructions: Your CT scan did not show any evidence of traumatic injury Follow-up with your primary doctor Avoid excessive consumption of alcohol <ELIO Aviles - Last Filed: 08/31/22 16:31> Prescriptions: No Action azithromycin [Zithromax Z-Miko] 250 mg tablet See Rx Instructions .ROUTE .COMPLEX Qty: 6 0RF Rx Instructions: take 500 mg today (day 1), then 250 mg for 4 days (days 2-5) prednisone 20 mg tablet 40 mg PO DAILY Qty: 10 0RF albuterol sulfate 90 mcg/actuation HFA aerosol inhaler 1 inh inhalation QID PRN (Reason: shortness of breath or wheezing) Qty: 6.7 0RF ibuprofen 600 mg tablet 600 mg PO TID PRN (Reason: pain) Qty: 20 0RF <ELIO Aviles - Last Filed: 08/31/22 16:31>
[2022-08-31 15:14] LABS: Appearance Urine Clear; Color Urine Yellow; Glucose Urine UA Negative (Negative); Leukocyte Esterase Urine Negative (Negative); Nitrite Urine Negative (Negative); Specific Gravity - Urine <= 1.005 (1.005-1.025); UMIC TRIGGER UACC YES; Urine Blood Trace (Negative); Urine Ketones Negative (Negative); Urine Protein 30 (1+) mg/dL (Neg-Trace)
[2022-08-31 15:17] LABS: Bacteria Urine None Seen (None Seen); Hyaline Casts Urine 0-2 /LPF (0-2); RBC Urine 0-2 /HPF (0-2); Squamous Epithelial Cell Urine 0-2 /HPF (0-2); WBC Urine 0-5 /HPF (0-5)
[2022-08-31 15:39] LABS: Amphetamine Screen Urine Not Detected (Not Detect); Barbiturates, Urine Not Detected (Not Detect); Benzodiazepines Screen Urine Not Detected (Not Detect); Cannabinoid Screen Urine Not Detected (Not Detect); Cocaine Screen Urine Not Detected (Not Detect); Fentanyl, urine Not Detected (Not Detect); Opiate Screen Urine Not Detected (Not Detect); Phencyclidine Screen Urine Not Detected (Not Detect)
[2022-08-31 15:53] VITALS: BP 91/66; PULSE 101; RESP 16; O2SAT 96
--- NOTE | 2022-08-31 16:55 | PC.NURSE ---
Pt has been ambulating with a strong steady gait, denies si/hi
== END 2022-08-31 17:10 | disposition home or self-care (01) ==
PROVIDERS: Physician Assistant Medical; Emergency Provider Emergency Medicine
DX: F10.220 Alcohol dependence with intoxication, uncomplicated (principal); Y90.9 Presence of alcohol in blood, level not specified; F17.200 Nicotine dependence, unspecified, uncomplicated; F12.90 Cannabis use, unspecified, uncomplicated; Z79.899 Other long term (current) drug therapy
CPT/HCPCS: 70450; 72125; 80307; 81001; 99283; 99284

== ENCOUNTER 2022-08-31 23:25 | Emergency (ER) | payer MEDICARE, SELFPAY ==
[2022-08-31 23:49] VITALS: BP 131/83; PULSE 104; RESP 17; O2SAT 98
[2022-08-31 23:52] VITALS: PULSE 103
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
--- NOTE | 2022-09-01 00:01 | PC.NURSE ---
pt requests refreshments- provided pt calm/cooperative no apparent distress
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
[2022-09-01 02:00] VITALS: BP 113/49; PULSE 104; RESP 18; TEMP 36.1; O2SAT 98
--- NOTE | 2022-09-01 03:26 | PC.NURSE ---
pt sleeping no apparent distress respirations even and unlabored
[2022-09-01 03:45] VITALS: BP 129/83; PULSE 104; RESP 16; O2SAT 99
[2022-09-01 04:00] VITALS: BP 125/85; PULSE 103; PULSE 105; RESP 18; TEMP 36.4; O2SAT 96; BMI 32.1
--- NOTE | 2022-09-01 04:00 | MHC.EDTECH ---
0400 rounding done ,vitals sign taken ,pt awake ,resting in bed .
[2022-09-01 06:00] VITALS: BP 136/91; PULSE 108; RESP 16; TEMP 36.8; O2SAT 97
[2022-09-01 07:24] VITALS: BP 122/86; PULSE 101; RESP 14; TEMP 36.6; O2SAT 96
== END 2022-09-01 09:00 | disposition home or self-care (01) ==
PROVIDERS: Emergency Provider Emergency Medicine
DX: F10.220 Alcohol dependence with intoxication, uncomplicated (principal); Y90.9 Presence of alcohol in blood, level not specified; S30.0XXA Contusion of lower back and pelvis, initial encounter; Y04.2XXA Assault by strike against or bumped into by another person, initial encounter; F17.200 Nicotine dependence, unspecified, uncomplicated; F12.90 Cannabis use, unspecified, uncomplicated; Y93.89 Activity, other specified; Y92.9 Unspecified place or not applicable; Y99.9 Unspecified external cause status
CPT/HCPCS: 99285

== ENCOUNTER 2023-12-07 17:09 | Emergency (ER) | payer MEDICARE, SELFPAY ==
[2023-12-07 17:15] VITALS: PULSE 125; O2SAT 96; BMI 37.3
[2023-12-07 17:20] VITALS: BP 158/107; PULSE 113; RESP 22; TEMP 36.8; O2SAT 93
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
--- NOTE | 2023-12-07 19:03 | PC.NURSE ---
patient appears to be standing in front of nurses station for at least the last 10 minutes mildly beligerent and repeating same phrases and asking to leave over and over.
--- NOTE | 2023-12-07 19:58 | PC.NURSE ---
client offered ativan and nrt, client declined
--- NOTE | 2023-12-08 03:38 | PC.NURSE ---
Pt awake, ambulated to [address] bed with steady gait. Pt requesting to leave. Provider Rachel made aware and at bedside speaking to Pt.
[2023-12-08 03:42] VITALS: BP 148/107; PULSE 106; RESP 18; TEMP 36.3; O2SAT 97
[2023-12-08 03:45] VITALS: BP 148/107; PULSE 106; RESP 18; TEMP 36.3; O2SAT 97
== END 2023-12-08 03:58 | disposition home or self-care (01) ==
PROVIDERS: Emergency Provider Emergency Medicine
DX: F10.220 Alcohol dependence with intoxication, uncomplicated (principal); Y90.9 Presence of alcohol in blood, level not specified
CPT/HCPCS: 99284

== ENCOUNTER 2024-01-02 13:58 | Emergency (ER) | payer MEDICARE, SELFPAY ==
[2024-01-02 14:01] VITALS: BP 170/100; PULSE 105; O2SAT 95
[2024-01-02 14:06] VITALS: BP 165/95; PULSE 70; RESP 18; TEMP 36.8; O2SAT 98; BMI 36.3
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
[2024-01-02 14:11] VITALS: BP 165/100; PULSE 85; RESP 18; TEMP 36.9; O2SAT 100
== END 2024-01-02 14:13 | disposition home or self-care (01) ==
PROVIDERS: Emergency Provider Emergency Medicine
DX: F10.129 Alcohol abuse with intoxication, unspecified (principal); Y90.9 Presence of alcohol in blood, level not specified; F17.210 Nicotine dependence, cigarettes, uncomplicated
CPT/HCPCS: 99282

== ENCOUNTER 2024-06-01 17:43 | Emergency (ER) | payer MEDICARE, SELFPAY ==
[2024-06-01 17:54] VITALS: BMI 33.0
[2024-06-01 18:03] VITALS: BP 117/94; PULSE 123; RESP 18; TEMP 37; O2SAT 97
[2024-06-01 18:13] LABS: MANUAL DIFF FLAG NO
[2024-06-01 18:16] LABS: Basophils Absolute Auto 0.1 X10*3/uL (0.0-0.2); Basophils Percent Auto 0.7 % (0-2); Eosinophils Absolute Auto 0.1 X10*3/uL (0.0-0.4); Eosinophils Percent Auto 1.3 % (0-4); Hematocrit 42.6 % (42.0-52.0); Imm Gran Abs Auto 0.02 X10*3/uL (0.00-0.03); Imm Gran Pct Auto 0.2 % (0.0-0.4); Lymphocytes Absolute Auto 3.3 X10*3/uL (1.2-4.9); Lymphocytes Percent Auto 38.2 % (20-40); Mean Corpuscular HGB Conc 35.2 g/dl (31.0-36.0); Mean Corpuscular Hemoglobin 30.3 pg (27.0-33.0); Mean Corpuscular Volume 86.1 fL (80.0-98.0); Mean Platelet Volume 9.3 fL (9.4-12.4); Monocytes Absolute Auto 0.4 X10*3/uL (0.1-1.2); Monocytes Percent Auto 5.2 % (2-11); Neutrophils Absolute Auto 4.6 x10*3/uL (2.0-8.3); Neutrophils Percent Auto 54.4 % (45-73); Platelet Count 388 X10*3/uL (160-400); Red Blood Count 4.95 X10*6/uL (4.60-5.80); Red Cell Distribution Width 13.1 % (11.0-16.0); White Blood Count 8.5 X10*3/uL (4.8-10.8)
[2024-06-01 18:17] LABS: Appearance Urine Clear; Color Urine Yellow; Glucose Urine UA Negative (Negative); Leukocyte Esterase Urine Negative (Negative); Nitrite Urine Negative (Negative); Specific Gravity - Urine <= 1.005 (1.005-1.025); UMIC TRIGGER UACC YES; Urine Blood Negative (Negative); Urine Ketones Negative (Negative); Urine Protein 30 (1+) mg/dL (Neg-Trace)
[2024-06-01 18:19] LABS: Bacteria Urine None Seen (None Seen); Hyaline Casts Urine 0-2 /LPF (0-2); RBC Urine 0-2 /HPF (0-2); Squamous Epithelial Cell Urine 0-2 /HPF (0-2); WBC Urine 0-5 /HPF (0-5)
[2024-06-01 18:24] LABS: Amphetamine Screen Urine Not Detected (Not Detect); Barbiturates, Urine Not Detected (Not Detect); Benzodiazepines Screen Urine Not Detected (Not Detect); Buprenorphine Scr Not Detected (Not Detect); Cannabinoid Screen Urine Not Detected (Not Detect); Cocaine Screen Urine Not Detected (Not Detect); Fentanyl, urine Not Detected (Not Detect); Methadone Screen, Urine Not Detected (Not Detect); Opiate Screen Urine Not Detected (Not Detect); Oxycodone Screen Urine Not Detected (Not Detect); Phencyclidine Screen Urine Not Detected (Not Detect)
[2024-06-01 18:27] LABS: Alanine Aminotransferase 27 U/L (0-40); Albumin Level 4.9 g/dL (3.5-5.0); Alkaline Phosphatase 93 U/L (39-117); Anion Gap 17 (12-20); Aspartate Amino Transferase 52 U/L (5-37); Bilirubin Total 0.4 mg/dL (0.0-1.0); Blood Urea Nitrogen 10 mg/dL (9-16); Calcium 9.3 mg/dL (8.4-10.2); Carbon Dioxide 20 mmol/L (22-29); Chloride 107 mmol/L (96-108); Creatinine Clr Calc Pharmacy 125.3; Estimated Glomerular Filt Rate > 60; Ethanol 427 mg/dL; Glucose Random 105 mg/dL (60-115); Sodium 140 mmol/L (135-145); Total Protein 8.7 g/dL (6.5-8.0)
[2024-06-01 18:28] LABS: Acetaminophen LAB < 3 mcg/mL (<30); Salicylate < 5.0 mg/dL (15-30)
--- NOTE | 2024-06-01 19:25 | PC.NURSE ---
This RN assumed pt care @ 1900. Pt standing at doorway to room. Plan of care ongoing.
--- NOTE | 2024-06-01 19:28 | ED.ALCOHOL ---
HPI - Alcohol General Chief Complaint: ETOH/Substance Use Stated Complaint: ETOH x3days, under pc by hpd, uncooperative Time Seen by Provider: 06/01/24 19:15 Source: family and EMS Limitations: other (Intoxication) History of Present Illness ED Provider: Albina Youngblood PA-C HPI narrative: 43-year-old male with a history of alcohol abuse presents intoxicated. Per EMS, PD was called to the home after a family member was verbalizing concern over the patient's drinking. It was relayed to them that the patient has not been caring for himself, and that he has been drinking in excess over the past 3 days. History limited from the patient given clinical intoxication. Related Data Previous Rx's ?Medication ?Instructions ?Recorded albuterol sulfate 90 mcg/actuation 1 inh inhalation QID PRN shortness 06/13/22 aerosol inhaler of breath or wheezing #6.7 grams azithromycin 250 mg tablet See Rx Instructions PO .COMPLEX #6 06/13/22 (Zithromax Z-Miko) tabs prednisone 20 mg tablet 40 mg (2 x 20 mg) PO DAILY #10 tabs 06/13/22 ibuprofen 600 mg tablet 600 mg PO TID PRN pain #20 tabs 07/13/22 Allergies Allergy/AdvReac Type Severity Reaction Status Date / Time No Known Allergies Allergy Verified 06/01/24 17:55 Review of Systems Review of Systems: Unable to obtain secondary to intoxication Yes all other systems are reviewed and are negative [facility] Past Medical History Attestation statement: The following information was validated with the patient. Medical History Alcohol abuse Social History Social History Alcohol intake: current Alcohol intake frequency: 3 or more drinks per day Alcohol type: beer and hard liquor Patient Tobacco Use Status: Current everyday Tobacco user Smoked in Last 30 Days: Yes Use of substances other than those prescribed or required for medical reasons: Yes Substance Use Type: Marijuana Advance Directives: No Advance Directives Information Provided: No Do you have a plan to hurt others: No Plan Physical Exam ED Vital Signs: Vital Signs - 24 hr 06/01/24 18:03 Temperature 98.6 F Pulse Rate 123 H Respiratory Rate 18 Blood Pressure 117/94 H Pulse Oximetry 97 Oxygen Delivery Method Room Air BMI result Body Mass Index 33.0 Const Other: Awake, appears older than stated age, Orientation/consciousness: patient oriented x3 [facility] Other: Alcohol halitosis Resp Effort & Inspection: normal respiratory effort Cardio Other: Normal peripheral perfusion Skin Other: Warm dry no rash Neuro Other: Patient is standing and door way, swaying back and forth, somewhat of a staggering gait General: patient oriented x3, no focal motor deficits and CN's II-XI intact bilaterally Psych Other: Appears intoxicated, becomes transiently hostile, with distraction he is cooperative Course Reevaluation(s) Reevaluation #1: I was able to verify additional information with 1 of the officers that received the patient when he arrived. Police were called due to the patient being intoxicated and drinking in excess at home, there were no concerns for SI or HI per the family member that called the police, patient has a sober ride here to pick him up and bring him home Time: 20:37 Medical Decision Making Medical Decision Making MDM Narrative: 43-year-old male with a history of alcohol abuse presents intoxicated. Per EMS, PD was called to the home after a family member was verbalizing concern over the patient's drinking. It was relayed to them that the patient has not been caring for himself, and that he has been drinking in excess over the past 3 days. History limited from the patient given clinical intoxication. Problem: Alcohol abuse History per EMS and family I have considered the following differential diagnoses: SI, HI, drug/alcohol intoxication, decompensated psychiatric illness Plan: Unclear if this is a true picture of failure to thrive versus ongoing alcohol abuse. Also unclear if the patient was truly suicidal or homicidal, he will have to be reassessed once he is clinically sober. I am inclined to have a care team consult implemented. Screening labs including drug screen and serum ethanol were obtained. I have independently reviewed the following tests: Labs: No leukocytosis, not anemic, thrombocytosis noted is chronic, no electrolyte abnormality, U tox negative, serum ethanol 427 Lab Data 06/01/24 18:07 06/01/24 18:07 Labs: Lab Results 06/01/24 Range/Units 18:07 WBC 8.5 (4.8-10.8) X10*3/uL RBC 4.95 (4.60-5.80) X10*6/uL Hgb 15.0 (14.0-18.0) g/dl Hct 42.6 (42.0-52.0) % MCV 86.1 (80.0-98.0) fL MCH 30.3 (27.0-33.0) pg MCHC 35.2 (31.0-36.0) g/dl RDW 13.1 (11.0-16.0) % Plt Count 388 D (160-400) X10*3/uL MPV 9.3 L (9.4-12.4) fL Immature Gran % (Auto) 0.2 (0.0-0.4) % Neut % (Auto) 54.4 (45-73) % Lymph % (Auto) 38.2 (20-40) % [place] % (Auto) 5.2 (2-11) % Eos % (Auto) 1.3 (0-4) % Baso % (Auto) 0.7 (0-2) % Lymph # (Auto) 3.3 (1.2-4.9) X10*3/uL [place] # (Auto) 0.4 (0.1-1.2) X10*3/uL Eos # (Auto) 0.1 (0.0-0.4) X10*3/uL Baso # (Auto) 0.1 (0.0-0.2) X10*3/uL Abs Immat Gran (auto) 0.02 (0.00-0.03) X10*3/uL Absolute Neuts (auto) 4.6 (2.0-8.3) x10*3/uL Absolute Nucleated RBC 0.000 (0.0-0.012) X10*3/uL Nucleated RBC % (auto) 0.0 (0.0-0.2) /100WBC Sodium 140 (135-145) mmol/L Potassium 4.0 (3.3-5.1) mmol/L Chloride 107 (96-108) mmol/L Carbon Dioxide 20 L (22-29) mmol/L Anion Gap 17 (12-20) BUN 10 (9-16) mg/dL Creatinine 0.91 (0.5-1.4) mg/dL Estim Creat Clear Calc 125.3 Estimated GFR > 60 Random Glucose 105 (60-115) mg/dL Calcium 9.3 D (8.4-10.2) mg/dL Total Bilirubin 0.4 (0.0-1.0) mg/dL AST 52 H (5-37) U/L ALT 27 (0-40) U/L Alkaline Phosphatase 93 (39-117) U/L Total Protein 8.7 H (6.5-8.0) g/dL Albumin 4.9 (3.5-5.0) g/dL Urine Color Yellow Urine Appearance Clear Urine pH 5.0 (5.0-9.0) Ur Specific [place] <= 1.005 (1.005-1.025) Urine Protein 30 (1+) H (Neg-Trace) mg/dL Urine Glucose (UA) Negative (Negative) mg/dL Urine Ketones Negative (Negative) mg/dL Urine Blood Negative (Negative) Urine Nitrite Negative (Negative) Ur Leukocyte Esterase Negative (Negative) Urine RBC 0-2 (0-2) /HPF Urine WBC 0-5 (0-5) /HPF Ur Squamous Epith Cells 0-2 (0-2) /HPF Urine Bacteria None Seen (None Seen) Hyaline Casts 0-2 (0-2) /LPF Salicylates < 5.0 L (15-30) mg/dL Urine Opiates Screen Not Detected (Not Detect) Ur Buprenorphine Scrn Not Detected (Not Detect) ng/mL Ur Oxycodone Screen Not Detected (Not Detect) ng/mL Urine Methadone Screen Not Detected (Not Detect) ng/mL Urine Fentanyl Screen Not Detected (Not Detect) Acetaminophen < 3 (<30) mcg/mL Ur Barbiturates Screen Not Detected (Not Detect) Ur Phencyclidine Scrn Not Detected (Not Detect) Ur Amphetamines Screen Not Detected (Not Detect) U Benzodiazepines Scrn Not Detected (Not Detect) Urine Cocaine Screen Not Detected (Not Detect) U Marijuana (THC) Screen Not Detected (Not Detect) Ethyl Alcohol 427 H* mg/dL Discharge Plan Discharge Clinical Impression: Alcoholic intoxication, Alcohol abuse Patient Disposition: Home, Self-Care Instructions: Abuse of Alcohol (ED) Additional Instructions: Alcohol use disorder You were seen in the Emergency Department today for treatment of alcohol use disorder.? You may have been given medications to help with your withdrawal symptoms.? Please do not drink alcohol with them. This is very dangerous and can cause respiratory depression or other adverse reactions depending on the medication. If you would like to cut down or stop your alcohol use please consider calling our outpatient Addiction Treatment office:? [facility] (M-F [id number]) [address] ? You have also been given a list of treatment providers in the area that can assist as well.? If you experience seizures, vomiting blood, black stools, falls, severe headache, chest pain, fevers, trouble breathing, hallucinations or any other concerns you need to call 911 or seek immediate care. Please stay hydrated. Prescriptions: No Action azithromycin [Zithromax Z-Miko] 250 mg tablet See Rx Instructions .ROUTE .COMPLEX Qty: 6 0RF Rx Instructions: take 500 mg today (day 1), then 250 mg for 4 days (days 2-5) prednisone 20 mg tablet 40 mg PO DAILY Qty: 10 0RF albuterol sulfate 90 mcg/actuation HFA aerosol inhaler 1 inh inhalation QID PRN (Reason: shortness of breath or wheezing) Qty: 6.7 0RF ibuprofen 600 mg tablet 600 mg PO TID PRN (Reason: pain) Qty: 20 0RF Print Language: Macedonian
--- NOTE | 2024-06-01 20:04 | PC.NURSE ---
Pt pacing the room and requesting to go home Pt redirected back into room Plan of care ongoing.
--- OUTSIDE RECORDS SUMMARY | 2024-06-01 20:11 | XMS_ITS | Clinical Summary ---
Author Organization [facility] Address [address] [place] [address] Care Team Providers Care Pyrometer Temperature Regulator Name Role Phone Jada Dominguez MD Primary Care Provider [phone] Allergies No known active allergies Medications Medication Sig Dispensed Refills Start Date End Date Status triamcinolone (KENALOG) 0.1 % cream Apply thin film to affected area 3-4 times daily 02/03/2019 Active hydrOXYzine HCL (ATARAX) 50 mg tablet Take 10 tablets (500 mg total) by mouth at bedtime. Active naltrexone (DEPADE) 50 mg tablet Take 10 tablets (500 mg total) by mouth at bedtime. Active Active Problems Problem Noted Date Diagnosed Date Dysthymia 07/14/2015 Depression 07/30/2014 Anxiety 07/30/2014 Immunizations Name Administration Dates Next Due Hepatitis A-Hepatitis B Adul t (Twinrix) 18yo and older 06/03/2009,12/03/2008,11/03/2008 PPD Test 06/24/2015,04/26/2014 Pneumococcal polysaccharide 23 valent (Pneumovax 23) 2yo and older 02/04/2009 Medical History Medical History Date Comments Depression 07/30/2014 DX:Depression Anxiety 07/30/2014 DX:Anxiety Dysthymia 07/14/2015 DX:Dysthymia Social History Tobacco Use Types Packs/Day Years Used Date Smoking Tobacco: Every Day Cigarettes Smokeless Tobacco: Current Alcohol Use Standard Drinks/Week Comments No 0 (1 standard drink = 0.6 oz pur e alcohol) Sex and Gender Information Value Date Recorded Sex Assigned at Not on file Gender Identity Not on file Sexual Orientation Not on file Obstetrics History Plan of Treatment Health Maintenance Due Date Last Done Comments DTaP,Tdap,and Td Vaccines (1 - Tdap) 08/03/1998 Pneumococcal Vaccine: Pediatrics (0 to 5 Years) and At-Risk Patients (6 to 64 Years) (2 of 2 - PCV) 02/04/2010 02/04/2009 Cholesterol Screening (Lipid Panel) 04/03/2022 Depression Screening 04/03/2022 Social Influencers of Health Screening 04/03/2022 COVID-19 Vaccine (1 - 2023-2 5 season) 2024 Influenza Vaccine (#1) 2024 Hepatitis A Vaccines Aged Out 06/03/2009, 12/03/2008, 11/03/2008 No longer eligible based on patient's age to complete this topic Hepatitis B Vaccines Completed 06/03/2009, 12/03/2008, 11/03/2008 HIV Screening Completed 11/04/2018 Hepatitis C Screening Completed 11/04/2018 HIB Vaccines Aged Out No longer eligi ble based on patient's age to complete this topic HPV Vaccines Aged Out No longer eligi ble based on patient's age to complete this topic IPV Vaccines Aged Out No longer eligi ble based on patient's age to complete this topic MMR Vaccines Aged Out No longer eligi ble based on patient's age to complete this topic Meningococcal ACWY Vaccine Aged Out N o longer eligible based on patient's age to complete this topic RSV Immunization Patients Under 20 months Aged Out No longer eligible b ased on patient's age to complete this topic Varicella Vaccines Aged Out No longer eligible based on patient's age to complete this topic Procedures Procedure Name Priority Date/Time Associated Diagnosis Comments HEPATITIS C SCREENING Routine 11/04/2018 HIV SCREENING Routine 11/04/2018 from Last 3 Months or Most Recently Relevant to Health Maintenance Results * HIV Screening (11/04/2018) HIV Screening Abstracted Historical Provider MD KEYA Shah * Hepatitis C Screening (11/04/2018) Hepatitis C Screening Abstracted Historical Provider MD KEYA Shah from Last 3 Months or Most Recently Relevant to Health Maintenance Care Teams Pyrometer Temperature Regulator Relationship Specialty Start Date End Date Jada Dominguez MD [address] [place] [id number] PCP - General Internal Medicine 09/26/18
--- NOTE | 2024-06-01 20:20 | PC.NURSE ---
Pt out of room pacing. Yelling I want my winter coat. My friend is coming in 10 mins. my sober ride This RN and tech repeatedly spoke with pt regarding staying in his assigned room. Plan of care ongoing.
[2024-06-01 20:58] VITALS: BP 134/105; PULSE 127; RESP 20; TEMP 37.2; O2SAT 97
[2024-06-01 20:59] VITALS: BP 134/105; PULSE 127; RESP 20; TEMP 37.2; O2SAT 97
== END 2024-06-01 21:01 | disposition home or self-care (01) ==
PROVIDERS: Emergency Provider Emergency Medicine; PCP Internal Medicine
DX: F10.120 Alcohol abuse with intoxication, uncomplicated (principal); Y90.8 Blood alcohol level of 240 mg/100 ml or more; F12.90 Cannabis use, unspecified, uncomplicated; F17.200 Nicotine dependence, unspecified, uncomplicated; Z79.899 Other long term (current) drug therapy
CPT/HCPCS: 36415; 80053; 80143; 80179; 80307; 81001; 85025; 99284

== ENCOUNTER 2024-06-12 19:18 | Emergency (ER) | payer MEDICARE, SELFPAY ==
[2024-06-12 19:35] VITALS: BMI 32.1
--- OUTSIDE RECORDS SUMMARY | 2024-06-12 19:59 | XMS_ITS | Clinical Summary ---
Author Organization [facility] Address [address] [place] [address] Care Team Providers Care V Belt Inspector Name Role Phone Jada Dominguez MD Primary Care Provider [phone] Allergies No known active allergies Medications Medication [...] Recently Relevant to Health Maintenance Care Teams V Belt Inspector Relationship Specialty Start Date End Date Jada Dominguez MD [address] [place] [id number] PCP - General Internal Medicine 09/26/18
[2024-06-12 20:02] LABS: MANUAL DIFF FLAG NO
[2024-06-12 20:10] LABS: Basophils Percent Auto 0.5 % (0-2); Eosinophils Absolute Auto 0.1 X10*3/uL (0.0-0.4); Eosinophils Percent Auto 0.9 % (0-4); Hematocrit 41.3 % (42.0-52.0); Hemoglobin 14.5 g/dl (14.0-18.0); Imm Gran Abs Auto 0.02 X10*3/uL (0.00-0.03); Imm Gran Pct Auto 0.3 % (0.0-0.4); Lymphocytes Absolute Auto 2.4 X10*3/uL (1.2-4.9); Lymphocytes Percent Auto 40.5 % (20-40); Mean Corpuscular HGB Conc 35.1 g/dl (31.0-36.0); Mean Corpuscular Hemoglobin 30.2 pg (27.0-33.0); Mean Platelet Volume 9.4 fL (9.4-12.4); Monocytes Absolute Auto 0.4 X10*3/uL (0.1-1.2); Monocytes Percent Auto 7.6 % (2-11); Neutrophils Absolute Auto 2.9 x10*3/uL (2.0-8.3); Neutrophils Percent Auto 50.2 % (45-73); Platelet Count 264 X10*3/uL (160-400); Red Cell Distribution Width 13.2 % (11.0-16.0); White Blood Count 5.8 X10*3/uL (4.8-10.8)
--- NOTE | 2024-06-12 20:17 | MHC.EDTECH ---
at this time this tech attempted to perform an EKG on the pt, when attempting the pt stated that he does not want an EKG done, RN aware
[2024-06-12 20:24] LABS: Ethanol 362 mg/dL
[2024-06-12 20:30] LABS: Alanine Aminotransferase 97 U/L (0-40); Albumin Level 4.5 g/dL (3.5-5.0); Alkaline Phosphatase 84 U/L (39-117); Anion Gap 22 (12-20); Aspartate Amino Transferase 110 U/L (5-37); Bilirubin Total 0.5 mg/dL (0.0-1.0); Blood Urea Nitrogen 8 mg/dL (9-16); Calcium 9.1 mg/dL (8.4-10.2); Carbon Dioxide 22 mmol/L (22-29); Chloride 101 mmol/L (96-108); Creatinine Clr Calc Pharmacy 167.9; Estimated Glomerular Filt Rate > 60; Glucose Random 95 mg/dL (60-115); Potassium 3.6 mmol/L (3.3-5.1); Sodium 141 mmol/L (135-145); Total Protein 8.3 g/dL (6.5-8.0)
[2024-06-12 20:31] LABS: Fentanyl, urine Not Detected (Not Detect)
[2024-06-12 20:36] VITALS: BP 143/89; PULSE 110; RESP 18; TEMP 37.1; O2SAT 94
[2024-06-12 20:47] LABS: Influenza A PCR NEGATIVE (Negative); Influenza B PCR NEGATIVE (Negative); Resp Syncy Virus RNA Qual PCR NEGATIVE (Negative); SARS COV2 PCR INHOUSE NEGATIVE (Negative)
[2024-06-12 20:55] LABS: Amphetamine Screen Urine Not Detected (Not Detect); Barbiturates, Urine Not Detected (Not Detect); Benzodiazepines Screen Urine Not Detected (Not Detect); Buprenorphine Scr Not Detected (Not Detect); Cannabinoid Screen Urine Not Detected (Not Detect); Cocaine Screen Urine Not Detected (Not Detect); Methadone Screen, Urine Not Detected (Not Detect); Opiate Screen Urine Not Detected (Not Detect); Oxycodone Screen Urine Not Detected (Not Detect); Phencyclidine Screen Urine Not Detected (Not Detect)
--- NOTE | 2024-06-12 22:29 | PC.NURSE ---
pt is calm lying in manning bed, eyes closed in supine position. nonlabored, even respirations. wearing green wilberto. belongings secured by security.
--- NOTE | 2024-06-13 00:27 | ED_ITS ---
HPI - Alcohol General Chief Complaint: ETOH/Substance Use Stated Complaint: ETOH Time Seen by Provider: 06/13/24 00:24 Source: patient and EMS Mode of arrival: EMS Limitations: no limitations History of Present Illness ED Provider: Dr. Katina Markham HPI narrative: Patient comes to the emergency room for alcohol intoxication. According to EMS, there was an argument with his girlfriend's sister. Patient states that the ambulance was called and he was brought to emergency room intoxication. Patient is awake, alert and oriented x3, states that he is not SI, no HI. Patient feels well otherwise, denies any falls or head injuries. Related Data Previous Rx's ?Medication ?Instructions ?Recorded albuterol sulfate 90 mcg/actuation 1 inh inhalation QID PRN shortness 06/13/22 aerosol inhaler of breath or wheezing #6.7 grams azithromycin 250 mg tablet See Rx Instructions PO .COMPLEX #6 06/13/22 (Zithromax Z-Miko) tabs prednisone 20 mg tablet 40 mg (2 x 20 mg) PO DAILY #10 tabs 06/13/22 ibuprofen 600 mg tablet 600 mg PO TID PRN pain #20 tabs 07/13/22 Allergies Allergy/AdvReac Type Severity Reaction Status Date / Time No Known Allergies Allergy Verified 06/12/24 19:38 Review of Systems 2 Review of Systems: Constitutional : No Weight loss, No Fever, No Chills, No Night Sweats, No Fatigue, No Malaise ENT/Mouth : No Hearing loss, No Ear Pain, No Nasal Congestion, No Sinus Pain, No Hoarseness, No sore throat, No Rhinorrhea, No Swallowing Difficulty Eyes: No Eye Pain, No Swelling, No Redness, No Foreign Body, No Discharge, No Vision Changes Cardiovascular : No Chest Pain, No SOB, No Dyspnea on Exertion, No Orthopnea, No Edema, No Palpitations Respiratory : No Cough, No Sputum, No Wheezing, No Smoke Exposure, No Dyspnea Gastrointestinal : No Nausea, No Vomiting, No Diarrhea, No Constipation, No abdominal Pain, No Hematochezia, No Melena Genitourinary : no irregular bleeding, No Dysuria, No Urinary Frequency, No Hematuria, No Urinary Incontinence, No Urgency, No Flank Pain, No Urinary Flow Changes, No Hesitancy Musculoskeletal : No joint pain, No Myalgias, No Joint Swelling Skin : No Skin Lesions, No rash Neuro : No Weakness, No Numbness, No Paresthesias, No Loss of Consciousness, No Dizziness, No Headache Psych : No Anxiety/Panic, No Depression, No SI/HI/AH/VH, admits to alcohol abuse Heme/Lymph: No Bruising, No Bleeding,No Lymphadenopathy Endocrine : No Polyuria, No Polydipsia, No Temperature Intolerance [facility] Past Medical History Medical History Alcohol abuse Social History Social History Alcohol intake: current Alcohol intake frequency: 3 or more drinks per day Alcohol type: beer and hard liquor Patient Tobacco Use Status: Current everyday Tobacco user Substance Use Type: Marijuana Advance Directives: No Advance Directives Information Provided: No Do you have a plan to hurt others: No Plan Physical Exam ED Vital Signs: Vital Signs - 24 hr 06/12/24 20:36 Temperature 98.8 F Pulse Rate 110 H Respiratory Rate 18 Blood Pressure 143/89 H Pulse Oximetry 94 Oxygen Delivery Method Room Air BMI result Body Mass Index 32.1 Const Other: Appearance: Alert. Oriented X3. No acute distress. Eyes: Pupils equal, round and reactive to light. ENT: Pharynx normal. Neck: Normal inspection. Neck supple. No lymph nodes noted. No crepitus CVS: Normal heart rate and rhythm. Pulses normal. Normal S1 and S2 Respiratory: No respiratory distress. Breath sounds normal. No Wheezing. No rales Abdomen: Soft and nontender. No rigidity. No distention. Skin: Skin warm and dry. Normal skin color. Normal skin turgor. Extremities: No lower extremity edema. No Lacerations. No Rash Neuro: Oriented X 3. No motor deficit. No sensory deficit. Moving all extremities. No slurred speech. CN 2 through 12 grossly intact Psych: calm, cooperative, normal affect Medical Decision Making Medical Decision Making [facility] Narrative: Patient is calm and cooperative, awake, alert and oriented X3, no SI and no HI My interpretation of labs, no significant abnormality in patient's hematology and chemistry, chronically elevated LFTs, AST higher than ALT. Patient's alcohol level positive. At this time, patient is ambulatory, steady gait and unassisted, coherent, patient states that he feels well, would like to be discharged home. Care Team/alcohol detox was offered, patient declined Lab Data [facility] Lab Attestation statement: I reviewed the patient's lab results. 06/12/24 19:56 06/12/24 19:56 Labs: Lab Results 06/12/24 06/12/24 Range/Units 19:56 20:13 WBC 5.8 (4.8-10.8) X10*3/uL RBC 4.80 (4.60-5.80) X10*6/uL Hgb 14.5 (14.0-18.0) g/dl Hct 41.3 L (42.0-52.0) % MCV 86.0 (80.0-98.0) fL MCH 30.2 (27.0-33.0) pg MCHC 35.1 (31.0-36.0) g/dl RDW 13.2 (11.0-16.0) % Plt Count 264 D (160-400) X10*3/uL MPV 9.4 (9.4-12.4) fL Immature Gran % (Auto) 0.3 (0.0-0.4) % Neut % (Auto) 50.2 (45-73) % Lymph % (Auto) 40.5 H (20-40) % [place] % (Auto) 7.6 (2-11) % Eos % (Auto) 0.9 (0-4) % Baso % (Auto) 0.5 (0-2) % Lymph # (Auto) 2.4 (1.2-4.9) X10*3/uL [place] # (Auto) 0.4 (0.1-1.2) X10*3/uL Eos # (Auto) 0.1 (0.0-0.4) X10*3/uL Baso # (Auto) 0.0 (0.0-0.2) X10*3/uL Abs Immat Gran (auto) 0.02 (0.00-0.03) X10*3/uL Absolute Neuts (auto) 2.9 (2.0-8.3) x10*3/uL Absolute Nucleated RBC 0.000 (0.0-0.012) X10*3/uL Nucleated RBC % (auto) 0.0 (0.0-0.2) /100WBC Sodium 141 (135-145) mmol/L Potassium 3.6 (3.3-5.1) mmol/L Chloride 101 (96-108) mmol/L Carbon Dioxide 22 (22-29) mmol/L Anion Gap 22 H (12-20) BUN 8 L (9-16) mg/dL Creatinine 0.69 (0.5-1.4) mg/dL Estim Creat Clear Calc 167.9 Estimated GFR > 60 Random Glucose 95 (60-115) mg/dL Calcium 9.1 (8.4-10.2) mg/dL Total Bilirubin 0.5 (0.0-1.0) mg/dL AST 110 H (5-37) U/L ALT 97 H (0-40) U/L Alkaline Phosphatase 84 (39-117) U/L Total Protein 8.3 H (6.5-8.0) g/dL Albumin 4.5 (3.5-5.0) g/dL Urine Opiates Screen Not Detected (Not Detect) Ur Buprenorphine Scrn Not Detected (Not Detect) ng/mL Ur Oxycodone Screen Not Detected (Not Detect) ng/mL Urine Methadone Screen Not Detected (Not Detect) ng/mL Urine Fentanyl Screen Not Detected (Not Detect) Ur Barbiturates Screen Not Detected (Not Detect) Ur Phencyclidine Scrn Not Detected (Not Detect) Ur Amphetamines Screen Not Detected (Not Detect) U Benzodiazepines Scrn Not Detected (Not Detect) Urine Cocaine Screen Not Detected (Not Detect) U Marijuana (THC) Screen Not Detected (Not Detect) Ethyl Alcohol 362 H* mg/dL Influenza Type A (PCR) NEGATIVE (Negative) Influenza Type B (PCR) NEGATIVE (Negative) RSV RNA Qual (PCR) NEGATIVE (Negative) SARS-CoV-2 RNA (RT-PCR) NEGATIVE (Negative) Discharge Plan Discharge Clinical Impression: Alcoholic intoxication Patient Disposition: Home, Self-Care Instructions: Abuse of Alcohol (ED), Alcohol Intoxication (ED) Additional Instructions: Please follow-up with your primary care physician tomorrow. If you have any worsening or new symptoms, please return to the emergency room or call 911 Prescriptions: No Action azithromycin [Zithromax Z-Miko] 250 mg tablet See Rx Instructions .ROUTE .COMPLEX Qty: 6 0RF Rx Instructions: take 500 mg today (day 1), then 250 mg for 4 days (days 2-5) prednisone 20 mg tablet 40 mg PO DAILY Qty: 10 0RF albuterol sulfate 90 mcg/actuation HFA aerosol inhaler 1 inh inhalation QID PRN (Reason: shortness of breath or wheezing) Qty: 6.7 0RF ibuprofen 600 mg tablet 600 mg PO TID PRN (Reason: pain) Qty: 20 0RF Print Language: Cymraes
[2024-06-13 00:36] VITALS: BP 128/65; PULSE 96; RESP 16; TEMP 36.9; O2SAT 95
[2024-06-13 06:09] VITALS: BP 153/83; PULSE 89; RESP 16; TEMP 36.4; O2SAT 98
== END 2024-06-13 06:15 | disposition home or self-care (01) ==
PROVIDERS: Emergency Provider Emergency Medicine
DX: F10.129 Alcohol abuse with intoxication, unspecified (principal); Y90.8 Blood alcohol level of 240 mg/100 ml or more; Z51.81 Encounter for therapeutic drug level monitoring; Z79.899 Other long term (current) drug therapy; Z03.818 Encounter for observation for suspected exposure to other biological agents ruled out
CPT/HCPCS: 0241U; 36415; 80053; 80307; 85025; 99284